=== PATIENT | male | born 1955 | race Caucasian/White ===

== ENCOUNTER 2023-10-24 09:27 | Outpatient (OUT) | payer OTHER, SELFPAY ==
--- NOTE | 2023-10-24 09:39 | XR_ITS ---
The [address] [address] Patient Name: CHELA DUGAN MRN: [id number] date: 1955 Sex: M Assigned Patient Location: [facility] Current Patient Location: Accession/Order Number: [id number] Exam Date: 10/24/2023 09:48 Report Date: 10/25/2023 06:18 At the request of: NON-STAFF PHYSICIAN Procedure: XR shoulder LT min 2V PROCEDURE: XR shoulder LT min 2V HISTORY: Left Shoulder Osteoarthritis M19.012 COMPARISON: None. FINDINGS: BONES:Mild degenerative changes of acromioclavicular joint. Bone anchors within lateral humeral head from prior rotator cuff repair. Unremarkable glenohumeral joint. SOFT TISSUES:No visible soft tissue swelling. EFFUSION:None visible. OTHER: Mechanical fusion of lower cervical spine. XR/XR shoulder LT min 2V IMPRESSION: 1. No acute bone abnormality. 2. Mild degenerative changes of the acromioclavicular joint. Electronically authenticated by: BRAD BROWN Date: 10/25/2023 06:18
--- NOTE | 2023-10-24 09:39 | XR_ITS ---
The [address] [address] Patient Name: CHELA DUGAN MRN: [id number] date: 1955 Sex: M Assigned Patient Location: [facility] Current Patient Location: [facility] Accession/Order Number: [id number] Exam Date: 10/24/2023 09:48 Report Date: 10/25/2023 06:34 At the request of: NON-STAFF PHYSICIAN Procedure: XR cervical spine 2-3V EXAMINATION: XR cervical spine 2-3V HISTORY: Cervical Spondylosis M47.812 COMPARISON: XR C-spine 03/28/2022 FINDINGS: BONES: Anterior mechanical fusion C5-C6-C7 without appreciable fracture or hardware loosening. Normal height and alignment of the vertebral bodies. Multilevel mild to moderate degenerative facet arthropathy. DISC SPACES: With spacers C5-C6, C6-C7. No significant disc space narrowing. PARASPINOUS: Negative. No paraspinous abnormality is seen. OTHER: Negative. XR/XR cervical spine 2-3V IMPRESSION: 1. Stable surgical changes. 2. Stable mild-moderate degenerative facet arthropathy at multiple cervical levels. Electronically authenticated by: BRAD BROWN Date: 10/25/2023 06:34
== END 2023-10-24 09:28 | disposition home or self-care (01) ==
LOC: RAD 09:32
PROVIDERS: PCP Internal Medicine
DX: M19.012 Primary osteoarthritis, left shoulder (principal); M47.812 Spondylosis without myelopathy or radiculopathy, cervical region; Z98.890 Other specified postprocedural states
CPT/HCPCS: 72040; 73030

== ENCOUNTER 2024-03-13 16:02 | Emergency (ER) | payer MEDICARE, OTHER, SELFPAY ==
[2024-03-13 16:06] VITALS: BP 128/70; PULSE 65; TEMP 36.3; O2SAT 95; BMI 33.6
--- OUTSIDE RECORDS SUMMARY | 2024-03-13 16:16 | XMS_ITS | CCD ---
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 without stertor or stridor. Cardiovascular: Regular rate and rhythm. Warm extremities with equal pulses. Psych: Normal mood and affect. Judgement and insight appropriate. Neuro: Alert and oriented. CN II-XII grossly intact. No focal deficits. Musculoskeletal: Gait intact. Moves all extremities well without apparent deformities. A comprehensive facial exam was performed with the following highlights: dorsal nasal deviation to the right Septum: deviated to the right caudally, deflection Inferior turbinates: hypertrophied bl Nasal valve angle: reduced bl Intranasal examination performed with limited view on anterior rhinoscopy. Procedures: Procedure: Rigid diagnostic nasal endoscopy Surgeon: Jace Lindsey MD Anesthesia: None Timeout: Performed Findings: A 0-degree rigid endoscope was passed through the patient's bilateral naris. The first pass was along the floor of the nose to the nasopharynx. The second pass was to the area of the middle meatus. The third pass was to the sphenoethmoidal recess. Septum: Deviation is S shaped with bilateral obstruction approximately 90% without perforations nor synechia. Internal Nasal Valve: Angle is reduced, narrowing the nasal airway bilaterally. Right nasal cavity: Inferior turbinate: 2+ Inferior meatus: Clear, no discharge, no polyps/masses/lesions Middle meatus: Clear, no discharge, no polyps/masses/lesions. po (more content not included)... Normal [facility] Tobacco Screening.on 023 Adult depression screening assessment No [facility] [facility] Work Phone: Fall risk assessment a) No falls within the last year [facility] 395 Work Phone: Tobacco use status [facility] b) No [facility] [facility] Work Phone: Coding Summary.on 06-08-2022 Coding Summary. CD:[id number] Gh0bWw+PGh lYWQ+ZI2YIBMpJ65ekWJglN6JR3vPM J1FJFIBGSGASJ9ELX1iuST0QRszU6R ybiAv YmjsfNSpLK36PEt0QGL1gHovUVtodO 6roINjK2g7BnTmVX55yU40QPfwHVYr CdU0EcAlxfvdpMFh P9mmZpXvzKUwBbd+PHRhYmxlIHdpZH YqGHmrHZQhFlVheMhtYF3fCo2nPWAo LWNvbGxhcHNlOiBj z6upFWCeBAlqCP5whXcjJ6CfdHX4RY Vvg0v0Je80sHF+YBDvTLA1rPjgNYmz q459TlMzi9gkSLT8 lUWhBAknLJE4A44ct3L2OHZsUBOmMI U2bJC3iN1ogOhldirlZ8SgtCUeInW5 YDN3zJHvsB4ezWjg ubmijB5gAcz+Z32ATB4NEYPVBV8GPs v7W4ExWtuyhQX+XO94ZGOqTL53oTGn lAOgy8ppaHs3XjJy SOChSXB8vCylDKbhi7RjELQxE46cgH Upy0W5XHJnrJyhtLWwBiUdgRP2wW1s RLxgqolsx6muildo Rmpya8nemv66sL47L68yDTjtGHTdTW P2KZUtDHXyuSelxy9kxF0xFv3+IDxj p9cvm3rkfSd3NhEc EWHfzxXwfWdoTKO0z6DnQl09R2UxjE rtz6HuZde3ig81uZPnr7U4kVV9JQuj CYZkqC4fYKuuZwE9 VQEgEoIrnQ32iBExVDrjLq2grBfvgL frNZ5yPJYklwnqDEVeeA8jIBNdwGPu gAkwRK9vZAFdyokr x618JxIuUZM8KCDjsABnO8SyjF4iDz GzFVZsJVRqX6JeiLJlMTqzH047VMbs PeM9QHAkaqEfT2To MNUazXicPqL7d2D9Zq9Dv9BwoevxQY S8OJecYHViMySfRzUeXkT5L2KqBog6 CHJcfVmcRM1uA1Wg AAQunjtkqezjxQI1ARBqQONfqW49xD EhRZrkCs9bb8Y6t517MMFfZALrmI64 Hq5hjFrbDKQpeCSZ zC8qwnfij1ycoayiWfKuBHPyYOs2FG f0ZTNmjBhbLdZzIKC2TpS7ZGQ0fSYc uI3cbFktohajoF9r Oyc+X61zmR3rOPQ1VVQ9auwoBZUmka EaYJ24VP22Q0PmJhjzqFMnjTO+PGRp azWbiCadCN5uRhRa g9whm5VrRTywT5FqDKYnCHedLjb3AR IbCYS0pDT2yY2zOCJgVFfye0Z3tYH9 N7JawxAvah3ys1zk ZWLfWMukE70qtODdh2V8JFPfzHH9WI CfrLwaBhSlpQ91Zzs+MPSqzMnpx2Bz Mwhms0vqs6hodQi5 GkRzSLYsvgIrgWacGGZ4z2SrMg74J0 6cCTyuOJPwNFXkFEUcRDSqaHhred0l pI5zGw1+PGNvbCB3 nWZ0gC7uBGLaQqO5OOyjO122RyGyhK TtZejpt2aqw9ewxLr2RgEiLRWhczHy iUowGVO7h4DcJw58 B42dEQrcJZTcCMJrSCTmEUCvoPjwkh 6pgN0mEr6+HL5ma2tuuj56gJ70tTZ+ XFAdSPK5oPzbTKvq PVExoZ4oXNceAdU8PVWeHhNhpK87aM TzSCacXy1hwZzneXfeQI9cIMRuuzwf h385SrKql2fvEGJl rYVbYSawATT3Z35iz8B6VUEuITYlAJ N7zJI3oY2plWrawvcmeBIwwPdtzlVc bOdcMHfzOMnlX306 NNQftPquDuFfzJesnpJfMuUqECi7W9 ZuBqx1UWQufNngRW8woSXxLYpvBd0u rUpqmStdPB3iOWKx ngwge631VtRcp1stHDZsbMZtKLnqLE S1U89mg8J3LUKgPBWsXJA1eGP0xJ7p bGlnbjogbGVmdDsg hkCigZjvOGpqSJinU836CRNccZbdUg RfbhFaGLIjoJT2ZA27NZ71jUQlk9Q3 dQH4T6OzOTRggrev phfbgYA7SYRmRBForO74Xh7wfWnyJf 2fGHGoMXW3VGNbpLTbT6CsoR2uXjFa QMUnJSUxY7XwsHCw CIerO820ZVbuJlV6BBDoddRrB0IdZX SetDiyIbS8d1Q7Gw1XK2A9QR98NP88 nTXdn0T4xJH9G0Le QHDsftoitecbxUZ1WXGdAQStvR39Te 9igEqmRq7gFUNoSAU9YRGlsLPwN1Ar fC3vCbYwFOKiOMAe A6KprBVvFHfhA159VIaxHeW0ZMVgvd TsT5CrDFGlhVvzLcD2y6M5Ez8XHKw4 TX49QL83qMRgc7D3 gPK4D1IiAQPbikdkraxnuWI7BDThOA SwlM97Xp8doNqgFp9pHNKkCRG4CXWq hDSiR9KdwZ4zXsVi QVZdXWUxS7FahSQePDsjZ965TMuyHu C5JFNqjeLpC5IoJIXyjQiyXwU1b8B0 Jr5KILBfWM62RIY9 jKL9ZJ64WY36C0PbJwhmvOPioIZ+PH RhYmxlIHdpZHRoPScxMDAlJyBzdHls YO5uGp0sUTPwBGVq eAwnaUDpDrTjr9kmNIJwBEtrBT6aeC vqT1IxyWY0KXGbw5n0Ct37H72xL9Oe dXA+KYEalFU2xFE5 eW1eQrFyOyX5YExdG539TiEhoKCkYc vsh2chh6yorWr7IaM1VCEyfuLyuSnm GEV6l3OeYb22P12g UMxbKMOeOMDaJFDsYIGhjOlyhx4goB 9wIi8+VSYjzCO8hOV7zQ7fGkIhKhZ8 WWrrV399AjGslFYn Awglu1pqw6zfzNr9WlQqGHDmhdCogJ ouYHO9j1EuAj54Y3WncPneb7FwBpq1 yi21sXXme1P4sZE2 Z1HzRXYaxrbwhHBorXviEA2kQRUurq jsOELngQ7sETCvY5p1KoSqWpX2KRok Z7UfnfQ0BNJieEBu VEutEZE1O11ka8W4UTJkDWLgCNE1cS A5bA1bvWprmxoszNJvdPtwnmYczZlp EUcuXYivO305NCOc xAuuNWFfgU6nIDSseQDumCkvIB4lYS BpbjsnPkdJQkJTLCBEQVZJRDwvdGQ+ YOLmBXN6jOmwLZwk JHDvtT6zQDIzO0o0YfZgAxX5CUgyO6 MhLIZcrymmBc29eP1rCpWbHnA9BYbo Q9JgtaP6MVBriQTo YTmgJDA1T07iv6G3XDJzELEpWMM1mH N8nB7avQujnsbdlKDspOhscxVigHxp QQhjPYvfP271TAWw xErwFnZwKwHbXlI4UOF1O6KnPpe8SR CgoZmpDM2krBVvUOlhLz2syNzetKlg WO2jMAMpkyduKJAz fX8lXDVemYTfxAlpFZ5bQNAijhztt5 33AaDgFET1SCQckSLsJ8UisH3hFqQf PRHfZQPlS0BvgZEe XVbyK986SGghXkX3YYLkobPbU2KxNV TfgQidZlG8y1I8Rn76ZtYUZNYyczro dGQ+YJZjZDY9mMgo SHqhRGFutC3nDYWaT3k5HdJxVdA3YT adG2KsYGXbrptlDc62lF8fCuQlVmS0 AXvjQ6XpslL1TYBe lHHpQGqwKFH8R68ha5G7JZCzAETqKM C0uHB5rZ2caZrbundwlYKglTkngcHe vIbxOUsiBGmwH232 ETMbrKxtHl4eyGO2V1PdEbz2SLWeyJ coHU1voQBwWFwaUx1cyIxkzTsrPW2x XGNjawzyNUDpsR3k YLPnxUIhcMtwAO3yLZUfaqwep301Zb ZbLHI7DFTdnRSaB9KhfV8yFbJiVCOv HMTtL2YxqNJyKCzn N658SKtqNrD1EOJtelKbI1EuDBOimQ fpLgP8c1H4Tl3IhPOfMWInDZ14UO65 PL41J2FgVttaiMGq bGU+PHRhYmxlIHdpZHRoPScxMDAlJy EjtVkoIT9oJw5mNZUcIERdcDertWPk BqWjs7skQOZySOgu YU8unWtiY2EqiLN9HPBbd8f6Na66V3 0fM5GtdGY+IFYyaFT6fPN7mA5lHfRg NcW7WQzdS192ZwBl pTZqAhrof1npc3zuaOo9XrGpNWNgmi UdrLxqKCH5y3SlUr71K40nBPqoXMDb PSIyMCUiIHZhbGln sq7uuC8zRb4+UWFicQQ6aOW7mP7bTf NaEuJ9BLddK581NxTedBXyDpiiL90g F1KycHZ+PHRyPjx0 LFJrcFctKN9igWQaUTilFe3lXLU6Nc EyPmPzAXyrB3ZnBQFopioltobheDL8 NHYsDAIwdR71Vl3t nGdgGl7rQSMpCKX2QXEjlGOmF3HuiZ 3pLnAkQGCuIBCfR9DtqKPsIUocP712 KKoiCsA5QTRmurEu W0SbVIEuiJehXmW8h4V4Ob5DwPsjeU RnQE9xPwKaSHl5C8DiAmd2ZZChmIfj CX5rkVVbNMziEy5p yKfxdOedYJ6cOGBbudids675LlDfk8 scOVHodPEkBSeaCYB1E69ta2N4MRIw QMHmZTL7lPG3vN3o bGlnbjogbGVmdDsgdmVydGljYWwtYW hyK452YTBqiZwkMvQTWqo4J6SaPgn8 PHXuoTevLQ9rrRNl EQccTy8ukArxfNydMW3lZWJyrnuzn6 53OyDlu2biZPPdgGGdFZcyRKH0V79f w7F0UTMfRSLbBPN8 uDW0wU7ooMlpertgyHXerQarxjVayK fqGSvyUYufJ874YEDhoMlrDy1DPsl4 J1NmGlw3FLWhaBxw ID9qcKEgEAgbTz6qtIiycHfxMD3sET Hdgnxxd717QoSgy5xpFQCbdXLgHGhu UQZ5R55sx1R3JCCl BHZhXTB6hQF9fT9pmPnmtwmlbCUfdU vwdhKumWhsUCoeVUzmJ121YEMkxKug PlBheWVyOjwvdGQ+ RU23tc76Q4EdDxehKut4YUMpRNC0kH X2rL8jBBKaPOhvy3S5iPC9U2ZhjjUx eo6mv6eqSNVwBHex Y29s (more content not included)... Normal [facility] CT Maxillofacial w/o Contras ton 06-07-2022 CT Maxillofacial w/o Contrast Exam Date/Time: 06/07/2022 10:19 EST Reason for Exam: J32.4 Report IMPRESSION: MILD MUCOSAL THICKENING. NASAL SEPTAL BOWING TOWARD THE LEFT. EXAM: CT Maxillofacial w/o Contrast CLINICAL HISTORY: Headache J32.4 COMPARISON: NONE. TECHNIQUE: Unenhanced images were obtained through the paranasal sinuses in the axial plane with coronal and sagittal reformats. FINDINGS: Maxillary sinuses: Minimal mucosal thickening along the wolfe the right maxillary sinus and at the infundibulum with probable right infundibular narrowing. Maxillary sinus is clear. Ethmoid sinuses: Minimal mucosal thickening in the anterior ethmoid air cells. Signs of previous ethmoid sinus surgery. Sphenoid sinuses: Minimal mucosal thickening right sphenoid sinus. Frontal sinuses: Mild mucosal thickening in the right frontal sinus floor. Minimal mucosal thickening in the left frontal sinus. Nasal fossa: Moderate smooth septal nasal bowling toward the left. All CT scans at this facility use dose modulation, iterative reconstruction, and/or weight based dosing when appropriate to reduce radiation dose to as low as reasonably achievable. FINAL REPORT Dictated: 06/07/2022 12:20 pm Poncho Mena MD Signed (Electronic Signature): 06/07/2022 12:20 pm Signed by: Poncho Mena MD Transcribed by: ROMAINE Technologist: Maria A MONTALVO [facility] Consent for Treatmenton 05-11 Consent for Treatment [id number]:127 Normal [facility] Physician Orderon 05-31-2022 Physician Order [id number]:127 Normal [facility] Physician Orderon 05-18-2022 Physician Order [id number]#[id number]:127 Normal [facility] MRI Shoulder w/o Lefton 110 MRI Shoulder w/o Left HISTORY: Left lateral shoulder pain. TECHNIQUE: Routine non-contrast MRI of the shoulder , left side COMPARISON: None RESULT: Rotator Cuff Tendons: Mild tendinosis involving supraspinatus with area of mostly low-grade partial-thickness articular sided tearing involving the distal fibers measuring approximately 1.9 x 2.1 cm. Mild tendinosis involving infraspinatus and subscapularis, without tear. Teres minor appears intact. Long Head Biceps Tendon: Intact with appropriate location. Muscle: Muscle bulk and signal intensity are within normal limits. Labrum: Areas of fraying/tearing especially superiorly Bones and Marrow: No evidence of fracture or bone marrow replacing process. Glenohumeral Joint: Cartilage appears preserved. No joint effusion. Acromioclavicular Joint: Mild to moderate degenerative changes with undersurface osteophytes and joint effusion. Other: No other significant abnormality. IMPRESSION: Rotator cuff tendinosis with partial-thickness tearing involving supraspinatus. Report reported and signed by Vincenzo Lake on 04/12/2022 1039 Normal [facility] Specialist XR CSPINE MIN 4 VIEWSon 03-10 XR CSPINE MIN 4 VIEWS EXAMINATION: XR CSPINE MIN 4 VIEWS HISTORY: Cervical spondylosis without myelopathy COMPARISON: XR C-spine 11/09/2017 FINDINGS: BONES: Anterior mechanical fusion C5-C6-7 the a plate and screws; no evidence of hardware fracture or loosening. Multilevel mild degenerative facet arthropathy. Multilevel bone encroachment on the neural foramen. DISC SPACES: Mild narrowing C5-C6, C6-C7, C7-T1. PARASPINOUS: Negative. No paraspinous abnormality is seen. OTHER: Negative. IMPRESSION: 1. Mechanical fusion of lower cervical spine. 2. Multilevel mild/moderate degenerative facet arthropathy and bone encroachment on the neural foramen likely contributing to patient's symptoms. 3. Mild degenerative disc disease. Electronically authenticated by: BRAD BROWN Date: 2022-03-28 21:08 Normal [facility] XR knee RT 4V*on 12-12-2021 XR knee RT 4V* [facility] [place] [address] [place] [address] XRay Report Signed Patient: Chela Dugan MR#: [id number] 3 : 1955 Acct:[id number] Age/Sex: 66 / M ADM Date: 12/12/21 Loc: XDUCLY Room: Type: [facility] Attending Dr: Lavonne JOSEPH Copies to: LAVONNE TRAN Ordering Provider: LAVONNE TRAN Date of Service: 12/12/21 XR/XR knee RT 4V*: RIGHT KNEE PAIN RIGHT KNEE - 4 views COMPARISON: None CLINICAL DATA: Right knee pain for the past week. Patient has been doing a lot of walking though no specific injury. AP, lateral and both oblique views were obtained. There is no acute fracture or dislocation. There is a sclerotic area at the distal femoral metadiaphysis. This is nonspecific though might be a bone island. There is no disproportionate joint space narrowing. There is minor marginal spurring. There is an enthesophyte at the insertion of the quadriceps tendon. A small knee effusion is present. XR/XR knee RT 4V* IMPRESSION: MINOR DEGENERATIVE CHANGES. NO ACUTE BONY FINDINGS. Impression dictated by: Pamela Cristina M.D.12/12/2021 5:57 PM Dictation Location: [place] [address] Transcribed By: [facility] 12/12/211756 Dictated By: Pamela Cristina MD 12/12/211753 Signed By: 12/12/211756 [facility] XR knee RT 4V* [facility] [email or web address] Other XR knee RT 4V* [facility] [employer] Other XR knee RT 4V* [address] [place] [address] [employer] Other XR knee RT 4V* [place] [address] No rt [employer] Other XR knee RT 4V* XRay Report [employer] Other XR knee RT 4V* Signed [employer] Other XR knee RT 4V* Patient: Chela Dugan MR#: [id number] [place] [employer] Other XR knee RT 4V* 3 [employer] Other XR knee RT 4V* : 1955 Acct:[id number] [employer] Other XR knee RT 4V* Age/Sex: 66 / M ADM Date: 12/12/21 [employer] Other XR knee RT 4V* Loc: XDUCLY Room: Ty pe: REG CLI [employer] Other XR knee RT 4V* Attending Dr: Aida Tran [facility] [employer] Other XR knee RT 4V* Copies to: Saskia TRAN [facility] [employer] Other XR knee RT 4V* Ordering Provider: LAVONNE TRAN [facility] [employer] Other XR knee RT 4V* Date of Service: 12/12/21 [employer] Other XR knee RT 4V* [id number]) XR/XR knee RT 4V*: RIGHT KNEE PAIN [employer] Other XR knee RT 4V* RIGHT KNEE - 4 views [employer] Other XR knee RT 4V* COMPARISON: None [employer] Other XR knee RT 4V* CLINICAL DATA: Right knee pain for the past week. Patient has been doing a lot of walking though [employer] Other XR knee RT 4V* no specific injury. N [employer] Other XR knee RT 4V* AP, lateral and both oblique views were obtained. There is no acute fracture or dislocation. [employer] Other XR knee RT 4V* There is a sclerotic area at the distal femoral metadiaphysis. This is nonspecific though might be [employer] Other XR knee RT 4V* a bone island. There is no disproportionate joint space narrowing. There is minor marginal [employer] Other XR knee RT 4V* spurring. There is a n enthesophyte at the insertion of the quadriceps tendon. A small knee [employer] Other XR knee RT 4V* effusion is present. [employer] Other XR knee RT 4V* X R/XR knee RT 4V* [employer] Other XR knee RT 4V* IMPRESSION: [employer] Other XR knee RT 4V* MINOR DEGENERATIVE CHANGES. [employer] Other XR knee RT 4V* NO ACUTE BONY FINDINGS. [employer] Other XR knee RT 4V* Impression dictated by: Pamela Cristina M.D.12/12/2021 5:57 PM [employer] Other XR knee RT 4V* Dictation Location: [place] [address] [employer] Other XR knee RT 4V* Transcribed By: LIZET 12/12/21 [facility] [employer] Other XR knee RT 4V* Dictated By: Pamela Cristina MD 12/12/21 [facility] [employer] Other XR knee RT 4V* Signed By: [employer] Other XR knee RT 4V* 12/12/21 [facility] [employer] Other Hemoglobin A1Con 08-15-2021 EAG 128.37 Normal [facility] Public Health Outreach Worker Comment on above: Performed By: #### A 1C #### [facility] [address] [place] [place], [place] [id number] HbA1c (Bld) [Mass fraction] 6.1 % High 4.0-6.0 [facility] Public Health Outreach Worker Comment on above: Performed By: #### A 1C #### [facility] [address] [place], [place] [id number] Lipid Panelon 08-15-2021 Cholesterol [Mass/Vol] 230 mg/dL High 125-200 [facility] Public Health Outreach Worker Comment on above: Result Comment: Low risk < 200mg/dL Borderline risk 201-239 mg/dl High risk > or equal to 240 Performed By: #### V [facility], LIPD #### [facility] [address] [place], [place] [id number] Cholesterol in HDL [Mass/Vol] 41 mg/dL Normal >40 [facility] Public Health Outreach Worker Comment on above: Result Comment: High Cardiovascular Risk HDL <40 mg/dL Low Cardiovascular Risk HDL > or equal to 60 mg/dl Performed By: #### V ITD, LIPD #### [facility] [address] [place], [place] [id number] Cholesterol in LDL [Mass/Vol] 169 mg/dL Normal [facility] Specialist Comment on above: Result Comment: LDL ATP III CLASSIFICATION LDL less than 100 mg/dl Optimal LDL 100-129 mg/dl Near or above optimal LDL 130-159 Borderline high LDL 160-189 High LDL greater than 189 mg/dl Very High Performed By: #### V ITD, LIPD #### [facility] [address] [place], [place] [id number] Cholesterol in VLDL [Mass/Vol] 20 mg/dL Normal [facility] Public Health Outreach Worker Comment on above: Performed By: #### V ITD, LIPD #### [facility] [address] [place], [place] [id number] Cholesterol.total /Cholesterol in HDL [Mass ratio] 6 {ratio} Normal [facility] Specialist Comment on above: Performed By: #### V ITD, LIPD #### [facility] [address] [place], [place] [id number] Triglyceride [Mass/Vol] 99 mg/dL Normal 30-150 [facility] Public Health Outreach Worker Comment on above: Result Comment: TRIG ATPIII CLASSIFICATIONS TRIG less than 150 mg/dl Normal TRIG 150-199 mg/dl Borderline High TRIG 200-500 mg/dl High TRIG greather than 500 mg/dl Very High Performed By: #### V ITD, LIPD #### [facility] [address] [place], [place] [id number] Vitamin D 25-OHon 08-15-2021 VIT D 25 OH 57 ng/ml Normal >29 [facility] Public Health Outreach Worker Comment on above: Result Comment: Neena min D Status Deficiency <20 ng/mL Insufficiency 20-29 ng/mL Optimal 30-100 ng/mL Possible Toxicity >=150 ng/mL Performed By: #### V ITD, LIPD #### [facility] K[facility] [place] [id number] [place] 05-10-2021 L -- Specimen: [id number] Received: 05/10/21 Status: JAMAAL Tarango Num: [id number] Spec Type: Surgical Subm Dr: Enmanuel Gonzalez MD Tissues: A Colon - Polyp (CECAL POLYP) Procedures: HE Stain/2, Gross/Micro L4 -- Patient Age/Sex Location Account Attending Physician -- Chela Dugan/David [id number] Enmanuel Gonzalez MD -- SPEC NUM: [id number] RECD: 05/10/21 STATUS: JAMAAL TARANGO NUM: [id number] SERENITY: 05/10/21 DR: Enmanuel Gonzalez MD ENTERED: 05/10/21 [facility] DR: SPEC TYPE: Surgical DEPT: S [facility] BY: [id number] ORDERED: HE Stain/2, Gross/Micro L4 ORDERED: HE Stain/2, Gross/Micro L4 Pathological Diagnosis Cecum, biopsy: - Inflammatory-type polyp Clinical Information Screening Gross Description Received in 10% neutral buffered formalin labeled with the patient's name, number and cecal colon polyp is a 0.5 cm cespedes-pink tissue fragment. Entirely submitted in one cassette labeled A1. (SM/JS) Microscopic Description Two glass slides with H E stained material have been examined. The microscopic findings support the above pathologic diagnosis. [id number] -- -- Specimen: [id number] Received: 05/10/21 Status: JAMAAL Tarango Num: [id number] Spec Type: Surgical Subm Dr: Enmanuel Gonzalez MD Tissues: A Colon - Polyp (CECAL POLYP) Procedures: HE Stain/2, Gross/Micro L4 -- Patient: Chela Dugan [id number] (Continued) -- Signed (signature on file) David Bailey MD 05/11/[address] [facility] COVID-19 Antigenon COVID-19 Antigen Healthcare Worker?: N Aldo Reference Aldo Reference Negative SARS-CoV+SARS-CoV-2 (COVID-19) Ag [Presence] in Respiratory specimen by Rapid immunoassay Negative for SARS Antigen by VERA COVID19 Blank Space Aldo Disclaimer Negative results, from patients with symptom Aldo Disclaimer onset beyond five days, should be treated as Aldo Disclaimer presumptive and confirmation with a molecular Aldo Disclaimer assay, if necessary, for patient management, Aldo Disclaimer may be performed. Negative results do not rule Aldo Disclaimer out COVID-19 and should not be used as the sole Aldo Disclaimer basis for treatment or patient management Aldo Disclaimer decisions, including infection control decisions. Aldo Disclaimer Negative results should be considered in the Aldo Disclaimer context of a patient's recent exposures, history Aldo Disclaimer and the presence of clinical signs and symptoms Aldo Disclaimer consistent with COVID-19. COVID19 Blank Space Aldo Disclaimer The Aldo SARS Antigen VERA does not differentiate Aldo Disclaimer between SARS-CoV and SARS-CoV-2. COVID19 Blank Space Aldo Disclaimer This test was developed and its performance Aldo Disclaimer characteristic determined by [place] and Aldo Disclaimer validated at [facility]. This Aldo Disclaimer test has not been FDA cleared or approved. This Aldo Disclaimer test has been authorized by FDA under an Emergency Use Aldo Disclaimer Authorization (EUA). This test has been validated Aldo Disclaimer in accordance with the FDA's Guidance Document (Policy Aldo Disclaimer for Diagnostics Testing in Laboratories Certified to Aldo Disclaimer Perform High Complexity Testing under CLIA prior to Aldo Disclaimer Emergency Use Authorization for Coronavirus Aldo Disclaimer iseas during the Public Health Emergency) Aldo Disclaimer issued on September 10, 2019. This test is only authorized Aldo Disclaimer for the duration of time the declaration that Aldo Disclaimer circumstances exist justifying the authorization of Aldo Disclaimer the emergency use of in vitro diagnostic tests for Aldo Disclaimer detection of SARS-CoV-2 virus and/or diagnosis of Aldo Disclaimer COVID-19 infection under section 564(b)(1) of the Aldo Disclaimer Act, 21 U.S.C. 360bbb-3(b)(1), unless the Aldo Disclaimer authorization is terminated or revoked sooner. PERFORMED BY: [facility] [address] [place] [address] PATHOLOGIST PHLEBOTOMIST SUPERVISOR/INSTRUCTOR DAVID BAILEY M.D. [facility] Comment on above: Performed By: #### S DENISE COVID-19 ALDO #### [facility] [address] Aldo Ag Negativeon 05-08-20 21 [place] Ag Negative Negative Normal Negative [facility] Comment on above: Result Comment: This is a duplicate [place] SARS Antigen (VERA) result to be used for statistical tracking purpose only. PERFORMED BY: [address] [place] [id number] PATHOLOGIST PHLEBOTOMIST SUPERVISOR/INSTRUCTOR DAVID BAILEY M.D. Performed By: #### S OFIANEG, COVID-19 ALDO #### [facility] [address] CBCon 05-03-2018 Erythrocyte distribution width Auto Ratio (RBC) 13.9 % Normal 11.5-15.0 [facility] Comment on above: Performed By: #### C BC ####[place] [phone] Hematocrit Auto Volume Fraction (Bld) 43.5 % Normal 39.0-51.0 [facility] Comment on above: Performed By: #### C BC ####[place] [phone] Hemoglobin mass conc (Bld) 14.3 g/dL Normal 13.0-17.0 [facility] Comment on above: Performed By: #### C BC ####[place] [phone] MCH Auto Entitic mass (RBC) 29.7 pG Normal 26.0-34.0 [facility] Comment on above: Performed By: #### C BC ####[place] [phone] MCHC Auto mass conc (RBC) 32.9 g/dL Normal 30.5-36.0 [facility] Comment on above: Performed By: #### C BC ####[place] [phone] MCV Auto Entitic volume (RBC) 90.4 fL Normal 80.0-100.0 [facility] Comment on above: Performed By: #### C BC ####[phone] Platelet mean volume Auto Entitic volume (Bld) 10.7 fL Normal 9.0-12.7 [facility] Comment on above: Performed By: #### C BC ####[place] [phone] Platelets Auto #/vol (Bld) 259 10*3/uL Normal 150-400 [facility] Comment on above: Performed By: #### C BC ####[phone] RBC Auto #/vol (Bld) 4.81 10*6/uL Normal 4.20-6.00 [facility] Comment on above: Performed By: #### C BC ####[place] [phone] WBC Auto #/vol (Bld) 11.05 10*3/uL High 3.70-11.00 [facility] Comment on above: Performed By: #### C BC ####[place] [phone] CNDSon 05-03-2018 CNDS HNO ID: [id number] thor: Kajal Kaufman) TristenService: General Internal MedicineAuthor Type: Nurse PractitionerType: Discharge SummariesFiled: 05/03/2018 1:49 PMNote Text:DISCHARGE NOTE (Patient Admitted Less than 48 Hours)SERVICE DATE: 05/03/2018SERVICE TIME: 1:46 PMADMISSION DATE: 05/02/2018DISCHARGE DISPOSITION: AMAParonychia Right index fingerRx or Bactrim e [facility] - Patientdeclined to waitSIGNATURE: Kajal Ramon APRN.BHANU PATIENT NAME: Chela DuganDATE: May 03, 2018 : 1:46 PM PAGER: Normal [facility] NURSING PROGon 05-03-2018 Protein mass conc HNO ID: [id number] thor: Lory (Rn) KEVIN Ruvalcabaervice: (none)Author Type: Registered NurseType: Nursing Progress NoteFiled: 05/03/2018 1:15 PMNote Text: Nursing Progress NotePatient Name: Chela DuganMRN: [id number] Location: [place] [address]/[facility]* ___ 0800: Pt awake sitting up in bed. Assessment complete, pt stable. Pt isAANDO x3, pleasant and cooperative. Pt verbalizes 5/10 R index finger painand swelling. Prn pain med declined. Ice bag applied for comfort. Notederythema and edema noted to R index finger. Pt states it seems like itsback to where it was when I first came in . Dr Simpson on consult, to reeval this AM. IVFs infusing as ordered. Needs met. Call light withinreach. Will continue to monitor.1312: Pt asking to leave AMA. This RN encouraged pt to stay and explainedthe potential risks of leaving. Pt continues to ask to sign out andrefused current dose of iv atbx prior to leaving. AMA form signed andwitnessed. IV removed. No bleeding, bruising, swelling, or redness notedto site. Yessi Womack NP and Dr Arreola notified. Pt refused a wheelchairand left the unit in good condition, ambulatory, at 1312.This note was completed by: Lory Ruvalcaba RN [facility] PROGRESSon 05-03-2018 Protein mass conc HNO ID: [id number] thor: Kajal (Aircraft Systems Technician) TristenSerfere: General Internal MedicineAuthor Type: Nurse PractitionerType: Progress NotesFiled: 05/03/2018 1:51 PMNote Text:PROGRESS NOTESERVICE DATE: 05/03/2018SERVICE TIME: 1:18 PMSERVICE: ROUSubjectiveINTERVAL HPI: Seen earlier in AM. Has receive IV Unasyn and IV Vancoovernight. Feels well except redness and swelling to the right indexfinger persists and has pain when attempting to bend finger tip (dipjoint). No pus collection at the nail bed. Has elected to sign AMArelated to not being seen by hand surgeon this AM.Current hospital medications:NaCl 0.9% 3-5 mL 3-5 mL INTRAVENOUS q 12 Hacetaminophen 650 mg tab(s) (TYLENOL) 650 mg ORAL q 6 H PRNoxyCODONE-acetaminophen 5-325 mg 1-2 tablet (PERCOCET) 1-2 tablet ORAL q 4H PRNvancomycin 1.5 g in D5W 250 mL (VANCOCIN) 0.015 g/kg/dose INTRAVENOUS q 12HRampicillin-sulbactam 1.5 g in NaCl 0.9% 100 mL MB+ (UNASYN) 1.5 gINTRAVENOUS q 6 HObjectivePHYSICAL EXAM:Physical Exam Performed:General: Awake, Alert, Oriented, Sitting comfortably in bed; NADLungs: CTAChest: No chest wall tendernessHeart: RRRAbdomen: Soft, nontender, positive bowel sounds Right Index Finger: No pus collection at nail bed cuticle but continueswelling and erythema extending from finger tip care home to pip. LimitedROM DIP joint. Sensation intact.Neuro: Cognition, Motor, Sensory grossly intactBP 121/76 Pulse 59 Temp (Src) 98.9 (Oral) Resp 16 Ht 5' 5 (1.65m) Wt 202 lb (91.6kg) SpO2 94% BMI 33.61 kg/(m2).DATA:Diagnostic tests reviewed for today's visit:Most recent labs and imaging results.Impression/Recommendat ionsPrincipal Problem: Paronychia of finger of right hand Index finger. Assessment as above Afebrile with resolving leukocytosis Plan Dr Arreola re evaluation pending Continue IV antibiotics Patient declined to continue treatment and will be leaving AMA to followwith his own MD Attempted to paper Rx Bactrim but patient declined what walked off unit. Rx for Bactrim e scripted to [facility] [place] 1:50 PM May 03IGNATURE: Kajal Ramon, AMPOULE WASHING MACHINE OPERATOR.PRODUCT PROMOTER SALES PERSON PATIENT NAME: Chela DuganDATE: May 03, 2018 : 1:18 PM PAGER: [facility] ALLIED HEALTHon 05-02-2018 ALLIED HEALTH HNO ID: [id number] thor: Umu (Rt) Jonathon Centeno: RadiologyAuthor Type: TechnicianType: Allied HealthFiled: 05/02/2018 10:28 AMNote Text: Radiology Service Progress NotePATIENT NAME: Chela DuganMRN: [id number] OF SERVICE: May 02, 2018TIME: 10:27 AMPATIENT IDENTITY VERIFICATION COMPLETED USING TWO (2) METHODS: Patientconfirmed name verbally and ID band matches..PATIENT GENDER DATA: MalePATIENT RELEVANT IMPLANT DATA REVIEWED: Not ApplicableRADIOLOGY DEPARTMENT: General X-ray: Exam(s) Completed: Upper ExtremityX-Ray(s): Fingers/Thumb, right :PERIPHERAL IV DATA: Not applicableSIGNED BY: Umu Centeno, RTNovember 2017 10:27 AM Normal [facility] Basic Metabolic Panlon 05-02 Anion gap 3 molar conc 14 mmol/L Normal 9-18 [facility] Comment on above: Performed By: #### C BCDIF, BMP ####[place] [phone] Calcium mass conc 9.2 mg/dL Normal 8.5-10.5 [facility] Comment on above: Performed By: #### C BCDIF, BMP ####[place] [phone] Chloride molar conc 102 mmol/L Normal 98-110 [facility] Comment on above: Performed By: #### C BCDIF, BMP ####[place] [phone] CO2 molar conc 24 mmol/L Normal 23-32 [facility] Comment on above: Performed By: #### C BCDIF, BMP ####[place] [phone] Creatinine mass conc 0.72 mg/dL Normal 0.70-1.40 [facility] Comment on above: Performed By: #### C BCDIF, BMP ####[place] [phone] eGFR- Amer. >60 Normal >60 [facility] Comment on above: Performed By: #### C BCDIF, BMP ####[place] [phone] GFR/1.73 sq M predicted among non-blacks MDRD vol rate/area (S/P/Bld) mL/min/{1.73_m2} Normal >60 [facility] Comment on above: Performed By: #### C BCDIF, BMP ####[place] [phone] Glucose mass conc 91 mg/dL Normal 65-100 [facility] Comment on above: Performed By: #### C BCDIF, BMP ####[place] [phone] Potassium molar conc 4.0 mmol/L Normal 3.5-5.0 [facility] Comment on above: Performed By: #### C BCDIF, BMP ####[place] [phone] Sodium molar conc 140 mmol/L Normal 135-146 [facility] Comment on above: Performed By: #### C BCDIF, BMP ####[place] [phone] Urea nitrogen mass conc 11 mg/dL Normal 10-25 [facility] Comment on above: Performed By: #### C BCDIF, BMP ####[place] [phone] CASE MGT INIT ASSCHRISTIANon 2017 CASE MGT INIT ASSES HNO ID: [id number]: Ghazal Post (Sw)anoService: Care ManagementAuthor Type: Social WorkerType: Care Mgt Initial AssessmentFiled: 05/02/2018 9:51 PMNote Text:CARE MANAGEMENT: ASSESSMENT AND DISCHARGE PLANSERVICE DATE: 05/02/2018SERVICE TIME: 7:33pmPRIMARY CARE PHYSICIAN:Vincenzo Mcgarry II, MDPhone: [id number] STATUS: ObservationNeeds Prior to Discharge: To Be Determined;Discharge PrescriptionsMEDICAL:Patient/R epresentative Stated Goals:To return home to life as it wasHealth Insurance: HEALTHSCOPE BENEFITSHealthscope BenefitsHealth Issues Impacting Discharge Plan: NoneLast Admission Date: noneIs this Within the Past 30 days? N/AIs This a Planned Readmission? Pt has not been admitted in the pastFollowed Up with Appointment Prior to Admission: N/AWhere Did the Patient Come From? HomeIntervention Taken to Avoid Future Readmission? N/AAdvance Directive:Current Advance Directive: NoneCare Certified Nutritionist Attempted to Assist with AD Completion: YesAction: Patient UnwillingHealth Literacy:1. How often do you need to have someone help you when you readinstructions, pamphlets, or other written material from your doctor orpharmacy? Never - 12. How confident are you filling out medical forms by yourself? Extremely- 1If Patient scores > 3 on either question, the following interventions wereput into place:Patient did not score > 3FUNCTIONAL AND COGNITIVE/BEHAVIORALPRIOR TO ADMISSION:Baseline Mental Status: Alert AND Oriented, Person, Place , Time andSituationFunctional Status: IndependentDoes Patient Currently Receive Any Community Services or Home Care? NoneEquipment Prior to Admission: NoneHas the Patient Been in a Fdc Facility in the Past 30 days? NoSOCIAL:Living Arrangement: Home, ranch w/ zero stepsLives With: SpouseFinancial Resources: Employed: full timePrimary Contact: Extended Emergency Contact InformationPrimary Emergency Contact: Malissa Dugan Eaajpa Dbbvmsva: SpouseSupportive: YesOther Important Patient Contacts: NoneCaregiver Assessment:Caregiver is ready, willing and able to meet the patient's needs asrecommended by the inter-professional team? 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 NoMedication Adherence:I am convinced of the importance of my prescription medication: Agreecompletely - 0I worry that my prescription medication will do more harm than good to meDisagree completely - 0I feel financially burdened by my iav-kc-jecnfy expenses for myprescription medication: Disagree completely - 0Patient is categorized as low risk < 2Are you interested in bedside delivery of your medications? No, gets Rxfilled at [facility] in [facility] Concerns:In the Last Month, Have You had Trouble Getting Food? No trouble gettingfoodDuring the Last Month, Have You Worried Whether Your Food Would Run OutBefore You Had Enough Money to Buy More? NoIs the Patient Psychosocially Complex? NoASSESSMENT AND PLAN:Medical Needs: NonePsychosocial Needs: NoneFREEDOM OF CHOICE EXPLAINED:Yes pt at bedsidePOTENTIAL TRANSITION PLANSHomeTo Be DeterminedSW met with pt at bedside of [email or web address] Pt was AANDOx3 and willing to meet withthis SUZY. Pt presents w/ c/o finger injury. 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 Pt drove self to the hospital and cantransport self home upon DC. Pt denies any MH or substance abuse issues atthis time. Pt denies being active w/ any community agencies/services atthis time. No skilled home going needs identified at this time. CMavailable to assist with DC if needed.SIGNATURE: MILAGROS Goyal PATIENT NAME: Chela DuganDATE: May 02, 2018 : 9:42 PM PAGER/CONTACT #: [phone] Normal [facility] CBC and Differentialon 05-02 Abs Baso 0.04 k/uL Normal <0.11 [facility] Comment on above: Performed By: #### C BCSELENE BMP ####[phone] Abs Stephens 1.43 k/uL High <0.87 [facility] Comment on above: Performed By: #### C BCSELENE BMP ####[place] [phone] Abs Neut 8.08 k/uL High 1.45-7.50 [facility] Comment on above: Performed By: #### C BCSELENE BMP ####[place] [phone] Basophils/100 WBC Auto (Bld) 0.3 % Normal [facility] Comment on above: Performed By: #### C BCSELENE, BMP ####[place] [phone] DTYPE Auto Diff Normal [facility] Comment on above: Performed By: #### C BCDIF, BMP ####[place] [address] Eosinophils Auto #/vol (Bld) 0.15 10*3/uL Normal <0.46 [facility] Comment on above: Performed By: #### C BCDIF, BMP ####[place] [phone] Eosinophils/100 WBC Auto (Bld) 1.2 % Normal [facility] Comment on above: Performed By: #### C BCDIF, BMP ####[place] [address] Erythrocyte distribution width Auto Ratio (RBC) 13.9 % Normal 11.5-15.0 [facility] Comment on above: Performed By: #### C BCDIF, BMP ####[place] [phone] Hematocrit Auto Volume Fraction (Bld) 48.5 % Normal 39.0-51.0 [facility] Comment on above: Performed By: #### C BCSHELIAF, BMP ####[place] [phone] Hemoglobin mass conc (Bld) 16.0 g/dL Normal 13.0-17.0 [facility] Comment on above: Performed By: #### C BCDIF, BMP ####[place] [phone] Lymphocytes Auto #/vol (Bld) 2.53 10*3/uL Normal 1.00-4.00 [facility] Comment on above: Performed By: #### C BCDIF, BMP ####[place] [phone] Lymphocytes/100 WBC Auto (Bld) 20.7 % Normal [facility] Comment on above: Performed By: #### C BCDIF, BMP ####[place] [phone] MCH Auto Entitic mass (RBC) 30.0 pG Normal 26.0-34.0 [facility] Comment on above: Performed By: #### C BCDIF, BMP ####[place] [phone] MCHC Auto mass conc (RBC) 33.0 g/dL Normal 30.5-36.0 [facility] Comment on above: Performed By: #### C BCDIF, BMP ####[place] [phone] MCV Auto Entitic volume (RBC) 90.8 fL Normal 80.0-100.0 [facility] Comment on above: Performed By: #### C BCDIF, BMP ####[place] [phone] Monocytes/100 WBC Auto (Bld) 11.7 % Normal [facility] Comment on above: Performed By: #### C BCDIF, BMP ####[place] [phone] Neutrophils/100 WBC Auto (Bld) 66.1 % Normal [facility] Comment on above: Performed By: #### C BCDIF, BMP ####[place] [phone] Platelet mean volume Auto Entitic volume (Bld) 10.8 fL Normal 9.0-12.7 [facility] Comment on above: Performed By: #### C BCDIF, BMP ####[place] [phone] Platelets Auto #/vol (Bld) 277 10*3/uL Normal 150-400 [facility] Comment on above: Performed By: #### C BCDIF, BMP ####[place] [phone] RBC Auto #/vol (Bld) 5.34 10*6/uL Normal 4.20-6.00 [facility] Comment on above: Performed By: #### C BCDIF, BMP ####[facility] [place], [place] [phone] WBC Auto #/vol (Bld) 12.23 10*3/uL High 3.70-11.00 [facility] Comment on above: Performed By: #### C BCSHELIAF, BMP ####[facility] [place], [place] [phone] CONSULTon 05-02-2018 CONSULT HNO ID: [id number] thor: Nathan ArreolaService: Orthopaedic SurgeryAuthor Type: PhysicianType: ConsultsFiled: 05/02/2018 7:18 PMNote Text:CONSULTATION - ORTHOPEDICS - HANDSERVICE DATE: 05/02/2018SERVICE TIME: 7:08 [facility] CARE PHYSICIAN: Vincenzo Mcgarry II, TAYLORubjectiveKENMARE COMMUNITY HOSPITALSRAVANI COMPLAINT: Pain in the Right Index fingerHPI: This is a 63 year old male who presents with infection Right indexfingerThe patient is concerned that he might have gotten a piece of metalembedded in his right index finger 6 months ago 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 The patient has had recurrent problems with drainage and painalong the cuticle of his right index finger. Over the last few days, hehas developed redness and pain of his right index finger. No trauma. Hewas placed on Keflex at an urgent care a couple of days ago with no help.No fevers or chills. No numbness, weakness, or paresthesias. He does nottake any oral anticoagulant medications. He has no other associatedsymptoms with this complaint. - History obtained from patientFUNCTIONAL STATUS: IndependentNo past medical history on file.PAST SURGICAL HISTORYProcedure Laterality Date- COLONSCOPY SCREENING HIGH RISK- PAST SURGICAL HISTORY OF right ring finger surgery- REMOVAL GALLBLADDER- SINUS SURGERY HXFAMILY HISTORYProblem Relation Age of Onset- Cancer Mother ovarian- Heart Attack Mother age 66- Stroke FatherSocial HistorySubstance Use Topics- Smoking status: Never Smoker- Smokeless tobacco: Never Used- Alcohol use NoPrescriptions Prior to Admission:traMADol (ULTRAM) 50 mg tablet Take 50 mg by mouth every 4 hours as neededfor Pain. Disp: Rfl: 0 05/01/2018 at Unknown timemupirocin (BACTROBAN) 2 % cream APPLY TO THE AFFECTED AREA(S) THREE TIMESDAILY FOR 7 DAYS (topically to finger) Disp: Rfl: 0 05/01/2018 at UnknowntimecephALEXin (KEFLEX) 500 mg capsule TAKE 1 CAPSULE BY MOUTH EVERY 8 HOURSfor 7 days Disp: Rfl: 0 05/02/2018 at 0200acetaminophen (TYLENOL EXTRA STRENGTH) 500 mg tablet Take 1,000 mg bymouth every 8 hours as needed for Pain. Disp: Rfl: 05/01/2018 at UnknowntimeALLERGIESAllergen Reactions- Benadryl [Diphenhyd* Swelling Tongue swelling- Nsaids (Non-Steroid* Swelling Tongue swellingCOMPLETE REVIEW OF SYSTEMS:GENERAL: No weight loss, malaise or feversObjectivePHYSICAL EXAM:Physical Exam Performed:GENERAL: Alert, Mild Distress, CooperativeRight - Index fingerSwelling over the middle and distal phalanx - Base of nailTender over the phalangesMotion in the finger is present at the IP joints but limitedErythema over the phalangesNo draniange noted over the fingerNail appears normalNo lymphangitis notedSmall scar over the site of attempted drainage - 2-3 mmBP 135/74 Pulse 55 Temp (Src) 98.8 (Temporal Artery) Resp 16 Ht 5'5 (1.65m) Wt 202 lb (91.6kg) SpO2 98% BMI 33.61 kg/(m2).DATA:Diagnostic tests reviewed for today's visit:Most recent imagingThere is no evidence of acute fracture, subluxation ordislocation seen. The soft tissues demonstrates periarticular soft tissueswelling over the second DIP and PIP joint where there is also spurringmost pronounced at the dorsal and volar aspect of the DIP joint. ?Noforeign body is seen.Cystic changes noted in the middle phalanx - Head - No bone destructionAssessment/PlanPrin cipal Problem: Paronychia of finger of right hand POA: Yes Assessment AND Plan:Recommend - Continuation of IV antibioticsWill follow patientActive Problems: Paronychia of finger, right POA: Yes Assessment AND Plan:Resolved Problems: * No resolved hospital problems. *Medication and Non-Pharmacologic VTE Prophylaxis/Vbxlcxxjjukugq55/2 08/25 1530 vte non-pharmacologic prophylaxis - none indicated ([place])05/02/18 1530 activity - mobilize patient ([place])VTE Prophylaxis: VTE prophylaxis appropriateSIGNATURE: Nathan Arreola MD PATIENT NAME: Chela DuganDATE: May 02, 2018 : 7:08 PM PAGER/CONTACT #: [phone] [facility] ED NOTEon 05-02-2018 ED NOTE HNO ID: [id number] thor: Wilbur (Rn) Salena, KEVINervice: NursingAuthor Type: Registered NurseType: ED NotesFiled: 05/02/2018 10:53 AMNote Text: Right index finger edematous and reddened with streaking to base offinger. Pt complains of pain. Seen by and plan is for xray and IANDD. [facility] ED PROV NOTEon 05-02-2018 Protein mass conc HNO ID: [id number] thor: TAYLOR Petersonervice: (none)Author Type: PhysicianType: ED Provider NotesFiled: 05/02/2018 12:41 PMNote Text:ED Provider NotePatient Name: Chela DuganMRN: [id number] DATE: 05/02/18HistoryPatient presents with:Finger Injury: pt has finger infection. Noticed earlier this week thatthere was swelling around the nailbed of the index finger of the righthand. Pt has redness and swelling noted to the finger. Painful. 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 The patient has had recurrent problems with drainage andpain along the cuticle of his right index finger. Over the last few days,he has developed redness and pain of his right index finger. No trauma.He was placed on Keflex at an urgent care a couple of days ago with nohelp. No fevers or chills. No numbness, weakness, or paresthesias. Hedoes not take any oral anticoagulant medications. He has no otherassociated symptoms with this complaint.Quality: Sharp painSeverity: ModerateTiming: For: As above Constant/Present NowModifying Factors: Worsened by: Touch the affected finger Relieved by: Nothing Unrelieved despite: KeflexContext: Normal setting and activityAssociated Symptoms: None, except as noted above.Current Facility-Administered Medications:bupivacaine (PF) 0.25 % (2.5 mg/mL) 2.5 mg injection (SENSORCAINE MPF) 1mL SUBCUTANEOUS ONCENaCl 0.9% 2-10 mL 2-10 mL INTRAVENOUS ONCEampicillin-sulbactam 3 g in NaCl 0.9% 100 mL MB+ (UNASYN) 3 g INTRAVENOUSONCEvancomycin 1.5 g in D5W 250 mL (VANCOCIN) 0.015 g/kg/dose INTRAVENOUS ONCECurrent Outpatient Prescriptions:traMADol (ULTRAM) 50 mg tablet Take 50 mg by mouth.mupirocin (BACTROBAN) 2 % cream APPLY TO THE AFFECTED AREA(S) THREE TIMESDAILY FOR 7 DAYS (topically)cephALEXin (KEFLEX) 500 mg capsule TAKE 1 CAPSULE BY MOUTH EVERY 8 HOURSibuprofen (MOTRIN) 600 mg tablet Take 600 mg by mouth.docusate sodium (COLACE) 100 mg capsule Take 1 capsule by mouth twicedaily.benzocaine-menthol (CEPACOL) 15-3.6 mg lozg Use 1 Lozenge as instructedevery 2 hours as needed.HYDROcodone-Acetaminoph en 7.5-300 mg tab Take 1 tablet by mouth every 6hours as needed.gabapentin (NEURONTIN) 300 mg capsule Take 300 mg by mouth. Take 2 everymorning and 2 every afternoonPast medical history: Cervical spine problem PAST SURGICAL HISTORYProcedure Laterality Date- COLONSCOPY SCREENING HIGH RISK- PAST SURGICAL HISTORY OF right ring finger surgery- REMOVAL GALLBLADDER- SINUS SURGERY HXFAMILY HISTORYProblem Relation Age of Onset- Cancer Mother ovarian- Heart Attack Mother age 66- Stroke FatherSocial HistorySocial History Main Topics- Smoking status: Never Smoker- Smokeless tobacco: Never Used- Alcohol use No- Drug use: No- Sexual activity: Not on fileALLERGIESAllergen Reactions- Benadryl [Diphenhyd* Swelling Tongue swelling- Nsaids (Non-Steroid* Swelling Tongue swellingReview of SystemsConstitutional: Negative for chills and fever.HENT: Negative for congestion, ear pain, rhinorrhea, sneezing, sore throatand trouble swallowing.Eyes: Negative for pain, discharge, redness and visual disturbance.Respiratory: Negative for cough and shortness of breath.Cardiovascular: Negative for chest pain and palpitations.Gastrointestinal: Negative for abdominal pain, diarrhea, nausea andvomiting.Genitourinary: Negative for difficulty urinating, dysuria, flank pain andhematuria.Musculoskeletal: Negative for back pain and myalgias.Skin: Positive for color change.Neurological: Negative for seizures, syncope, weakness and headaches.Hematological: Negative for adenopathy.Psychiatric/Behavio ral: Negative for hallucinations, self-injury andsuicidal ideas.Physical ExamBP 132/80 Pulse 68 Temp (Src) 98.4 (Oral) Resp 14 Ht 5' 5 (1.65m) Wt 202 lb (91.6kg) SpO2 96% BMI 33.61 kg/(m2).Physical ExamMusculoskeletal: Hands:Vital signs and Nursing notes were reviewedGen Appearance: Patient is alert and oriented and in no acute distress.Neck: Supple, Trach/Thyroid normalEENT: PERRLA, EOMI, Conjunctivae normal.Skin: Warm and dry with no rash.Cardiovascular: Heart RRR, no gallops or rubs, no aorta enlargement orbruit noted. 2+ radial and ulnar pulses equal and symmetric bilaterally.Normal cap refill in all fingers.Respiratory: Lungs clear, no wheezing, no rales, normal breath sounds.Gastrointestinal: Abdomen non tender, bowel sounds normal, norebound/guarding/distention or mass.Genitourinary: Bladder not tender or distended; no CVA tenderness.Musculoskeletal: No Shoulder/Humerus tenderness No Elbow tenderness No Forearm tenderness Right index Finger Tenderness No Metacarpal Tenderness No Carpal Tenderness No Scaphoid/Snuffbox Tenderness No Lunate/Middorsal Wrist Tenderness No Subungual hematoma No Dislocation No Deformity Boutonniere Mallet Castine Neck No Finger/Joint Instability FDS/FDP/ED intact in all fingers against active stress All wrist flexors/extensors intact against active stress Able to flex/extend/oppose/abduct/addu ct thumb against active stresswithout difficulty Kanavel's Signs are Negative Right index finger paronychia No felonThe patient is unable to flex his finger due to pain. He prefers to havehis finger in complete extensionNeurological: Pt is alert and oriented x 3, memory intact, no focal motoror sensory deficits noted, normal gait. Median, ulnar, and radial nervesintact and equal bilaterally.Diagnostic TestingED Labs Ordered and ReviewedCBC + AUTO DIFF (AK,AV,EU,FV,HL,GHAZAL,MM,SP)BASIC METABOLIC PANEL (AK,AV,EU,FV,HL,GHAZAL,MM,SP)Proce duresProcedure note: Incision and drainage of paronychia.The patient was prepped and draped in sterile fashion.A total of 4 cc's of 0.25% bupivacaine without epinephrine was used for adigital block.Using an 11 blade, a 3 mm incision was made along the nail fold along theulnar side.A small amount of yellow discharge was obtained.The patient tolerated the procedure well, no complications.ED Course / Clinical ImpressionClinical Impressions as of May 02 1241Paronychia of finger of right handCellulitis of finger of right handFailure of outpatient treatmentMDM / Disposition / PlanMDMReported possible metal foreign body. Evaluated with x-ray. The patientwill need drainage of this paronychia.12:23 PM - I discussed the case with Dr. Lawson, system administration manager for hand surgery,he requests IV antibiotics and admission to CDU.The patient was ADMITTED TO: CDU.Condition at time of disposition: stablePLEASE NOTE: Portions of the medical record may have been produced usingelectronic shoulder joiner and may contain errors with respect totranslation of words which may not have been identified prior tofinalization of the chart.SIGNATURE: Alex Browne [facility] Amos Browne MD05/02/18 1241 Normal [facility] HISTORY PHYSICALon 8 HISTORY PHYSICAL HNO ID: [id number] thor: Vincenzo Dexterervice: General Internal MedicineAuthor Type: PhysicianType: HANDPFiled: 05/02/2018 3:14 PMNote Text:ROUHISTORY AND PHYSICAL EXAMPATIENT NAME: Chela DuganMRN: [id number] DATE: 05/02/2018SERVICE TIME: 3:07 PMPrimary Care Physician: Vincenzo Mcgarry II, MDASSESSMENT AND PLANPatient Active Hospital Problem List: Paronychia of finger of right hand (05/02/2018): continue withVancomycin and Unasyn for now. IV fluids. NPO until evaluated by Brian (hand surgery). Analgesics. 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 He routinely cuts his hands. Theswelling and pain of his finger began several days ago. He was evaluatedin an urgent care center and placed on Keflex. His finger became worse sohe came to the ED at [facility] for further evaluation and therapy. He deniesfever and chills. He is allergic to NSAID's. An IANDD was done in the ED.Per the patient very little pus was expressed. Currently his pain is wellcontrolled.PAST MEDICAL HISTORY: No past medical history on file.PAST SURGICAL HISTORY:PAST SURGICAL HISTORYProcedure Laterality Date- COLONSCOPY SCREENING HIGH RISK- PAST SURGICAL HISTORY OF right ring finger surgery- REMOVAL GALLBLADDER- SINUS SURGERY HXFAMILY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 changes.This HANDP can be found in the Electronic Medical Record dated 12/09/17.SIGNATURE: Sonia Barros MD PATIENT NAME: Chela DuganDATE: December 19, 2017 : 11:27 AM PAGER: [facility] NURSING PROGon 12-19-2017 Protein mass conc HNO ID: [id number] thor: Angeles (Rn) Jorje, RNService: Vascular SurgeryAuthor Type: Registered NurseType: Nursing Progress NoteFiled: 12/19/2017 12:30 PMNote Text: Nursing Progress NotePatient Name: Chela DuganMRN: [id number] Location: [facility] OR POOL/[facility] OR POOL Daily Note: Pt's family was updated at 1230 on the status of surgery, viathe family paging system.This note was completed by: Angeles Recinos RN [facility] OPERATIVE NOon 12-19-2017 OPERATIVE NO HNO ID: [id number] thor: Sonia BarrosService: NeurosurgeryAuthor Type: PhysicianType: Operative ReportFiled: 12/20/2017 8:47 AMNote Text:[facility] - Operative ReportCHELA DUGAN ADOB: 1955 AGE: 62 SEX: MMRN: [id number] CSN: [id number] SVC: GENS LOCATION: [id number] PHYSICIAN: Sonia Barros M.D.DATE OF PROCEDURE: 12/19/2017PREOPERATIVE DIAGNOSIS: Cervical radiculopathy.POSTOPERATIVE DIAGNOSIS: Same.NAME OF OPERATION: Anterior cervical diskectomy and fusion at C5-6 andC6-7 with plate.SURGEON: Sonia Barros M.D.PATIENT PARTNER: Yas Roman (sp).ANESTHESIA: General.ESTIMATED BLOOD LOSS: 50 cc.BACKGROUND NOTE: This patient had severe pain going down the arms,especially the right. MRI revealed significant foraminal stenosis. Hedid not improve with conservative treatment, wished to have surgery. All risks and benefits were carefully explained.PROCEDURE: The patient was taken to the OR and satisfactory generalendotracheal anesthesia was induced. The patient was given 2 g of IVpreoperative Ancef and placed in a supine position on the operatingroom table with the neck slightly extended. The neck was prepped anddraped in the usual sterile fashion. A time- out was performed. Theincision was made on the right side of the neck at the level of thecricoid cartilage. This was made transversely. We opened theplatysma sharply in a longitudinal direction and carefully dissectedthe soft tissue plane in between the sternocleidomastoid and theesophagus. The carotid was identified and carefully protected. Theesophagus was retracted medially. The spine was identified. Theprevertebral fascia was incised sharply. We removed the anteriorosteophytes and took an intraoperative x-ray with an instrumentrigidly affixed to the spine. We agreed on the level marked with apurple marking pen and a destructive lesion. Dr. Waddell also identified the level and called in and discussedthis with us from a remote location. We put in the self-retainingretractor and brought [place] distraction post at C5 and C6. Wegently distracted. We brought in the intraoperative microscope. TheC5-6 disk was removed. The endplates were scraped, posteriorosteophytes removed with a high-speed drill. We opened the PLLsharply and performed wide foraminotomies and undercut the adjacent ofvertebral body edges. There was no residual compression. We were ableto pass a blunt instrument out the foramen on both sides. Weirrigated and placed an 8 mm structural lordotic allograft. This wasgently countersunk. We removed the C5 post and replaced it at C7 andgently distracted. We removed the C6-7 disk, we scraped the endplates,removed the posterior osteophytes with a high-speed drill with PLL andperformed wide foraminotomies. We undercut the adjacent of vertebralbody edges. We were able to pass a blunt instrument out the foramenon both sides. There was no residual compression. We copiouslyirrigated and placed a 7 mm structural lordotic allograft. This wasgently countersunk. We removed the posts and placed a 30 mm StrykerAviator plate spanning C5 to C7. Screws were brought. We used 14 mmvariable angle screws at all levels. Screws were brought down to bonelevel and carefully locked to the plate. Final x-ray showed goodplacement of graft and hardware and good spinal alignment. Weinspected the esophagus under the microscope. There was no sign ofany injury. There was no active bleeding. We began to close. Weremoved the retractors and closed the wound in 3 layers using running4-0 Biosyn subcuticular and skin glue. At the end of the case, thepatient was transferred to the hospital bed, extubated, and taken toPACU in stable condition. There were no complications. All countswere correct at the end of the case. I was present and scrubbed forall critical aspects of the case.Sonia Barros M.D.NeurosurgeryJA:[id number]: 12/19/2017 15:07:36T: 12/20/2017 01:53:09Job #: [id number] [facility] PT EDon 12-19-2017 PT ED HNO ID: [id number] thor: Donita (Rn) KEVIN Monteervice: NursingAuthor Type: Registered NurseType: Patient EducationFiled: 12/19/2017 9:31 AMNote Text:PATIENT EDUCATION TOPIC: PROCEDURE / SURGERY: Pre-op Teaching:ProtocolsPATIENT NAME: Chela DuganMRN: [id number] LOCATION: OR POOL/FV OR POOLREADINESS TO LEARNCOGNITIVE ABILITY: Alert and orientedMOTIVATION TO LEARN: InterestedFAMILY SUPPORT: Unable to assess - Family not presentINSTRUCTION PROVIDED TO: PatientPATIENT LEARNS BEST BY: Individual InstructionFACTORS AFFECTING LEARNING: NonePHYSICAL LIMITATIONS AFFECTING LEARNING: NoneLEARNING RESPONSEDIAGNOSIS: ADULT: surgeryPATIENT/FAMILY RESPONSE: Verbalizes understanding of: [id number]-Oqyo ect action to take to follow pre-operative instructionsMETHOD OF INSTRUCTION: Individual instructionFOLLOW-UP PLAN: Complete - No need for follow-upINSTRUCTIONAL AIDS USED: NASUPPLEMENTAL MATERIAL PROVIDED TO PATIENT: NoneREFERRAL (RECOMMENDATION): NoneElectronically Signed By: Donita Monte RN [facility] XR CERVICAL 2V AP/LATon Protein mass conc * * *Final Report* * *DATE OF EXAM: Dec 19 2017 2:44PM FVO 5308 - XR CERVICAL 2V AP/LAT / REASON: NECK PAIN/ INTRA OP C5-7 FUSION * * * * Physician Interpretation * * * * XR CERVICAL 2V AP/LATPROVIDED HISTORY: NECK PAIN/ INTRA OP C5-7 FUSIONCOMPARISON: A radiograph of the cervical spine from 12/19/2017 at 12:39 PMTECHNIQUE: 2 spot views of the cervical spine.RESULT: Anterior fusion device with transfixing screws is noted in the cervical spine extending from the C5 level to the C7 level. Cervical spine alignment appears appropriate on the provided images.IMPRESSION: Lower cervical fusion device has been placed in the interval. Fluoroscopic assistance provided for surgical procedureTranscriptionist: DIMITRI Transcribe Date/Time: Dec 19 2017 3:22PDictated by : DEEPA HATHAWAY MDThis examination was interpreted and the report reviewed and electronically signed by: DEEPA HATHAWAY MD on Dec 19 2017 3:22PM [id number] [facility] XR CERVICAL SPECIFY 1Von Protein mass conc * * *Final Report* * *DATE OF EXAM: Dec 19 2017 12:47PM FVO 5315 - XR CERVICAL SPECIFY 1V / REASON: NECK PAIN/ INTRA OP C5-7 FUSION #1 * * * * Physician Interpretation * * * * HISTORY: NECK PAIN/ INTRA OP C5-7 FUSION #1CERVICAL SPINETECHNIQUE: Single crosstable lateral view of the cervical spine was obtained in the operating room. Please refer to the intra-operative note.RESULT:Metallic pointer at C5-6 anteriorly.IMPRESSION:Metallic pointer at the C5-6 anteriorly.Food Critic: DIMITRI Transcribe Date/Time: Dec 19 2017 1:54PDictated by : SAMANTHA BRISCOE MDThis examination was interpreted and the report reviewed and electronically signed by: SAMANTHA BRISCOE MD on Dec 19 2017 1:55PM [id number] [facility] NURSING PROGon 12-17-2017 Protein mass conc HNO ID: [id number] thor: Tito (Rn) KEVIN Suarezervice: (none)Author Type: Registered NurseType: Nursing Progress NoteFiled: 12/17/2017 12:04 PMNote Text:PACC Nurse Progress NoteHistory AND Physical:PACC Visit Date: 12/09Original HANDP Date: N/AED visit Date: N/AOutside HANDP Scanned Date: N/ALabs Within Last 6 Months:CBC: Date MP/CMP: Date T: Date TT: Date 12/09UA: Date 12/09Urine C+S: Date 12/09TYPE AND SCREEN: Date asal swab positive-all other results within normal limits.Imaging Within Last 12 Months:N/ACardiac Testing:EKG in last 12 Months: Yes: Date: 12/09, Comment: confirmed-S BradycardiaLast Menstrual Period:LMP Date: N/APostmenopausal >1yr: N/A,S/P Hysterectomy: N/ABMI Percentile (PEDS):N/ARisk Assessment:N/AAnesthesia Review:N/ANarrative:Nasal swab positive for staph. Patient contacted by [facility]-order formupirocin placed and patient given instructions for use.Pre-op Considerations:N/AChart Check:Barrett Suarez RNJuly 2017 12:01 PM [facility] Type and SCR (30D)on 018 ABO/RH(D) Positive [facility] Comment on above: Performed By: #### T SCR30 ####[facility] [place], [place] [phone] HOSPon 12-06-2017 HOSP Patient:Chela Dugan AMRN: Height:5' 5 (1.651 m)Weight:190 lb (86.183 kg)Outpatient Medications as of 12/19/17:mupirocin (BACTROBAN) 2 % ointmentHYDROcodone-Acetaminop hen 7.5-300 mg tabgabapentin (NEURONTIN) 300 mg capsuleAdmission/Clinic Administered Medications as of 12/19/17:lactated ringers infusionceFAZolin iv piggyback 2 g in D5W (iso-osmotic) 100 mL (ANCEF)Problem List:Cervical disc disorder with radiculopathy [M50.10]Allergies:Benadryl [Diphenhydramine Hcl]Nsaids (Non-Steroidal Anti-Inflammatory Drug)Date Verified: 12/19/17Lab ValuesLab Value Units Date High LowPOTA* 4.1 mmol/L 12/09/2017 5.1 3.7HEMA* 44.7 % 12/09/2017 51.0 39.0Progress Notes (NEUS FRVW):Geraldine Blanco Psr 12/12/2017 11:06 AM SignedReceived fax from [email or web address], requesting medical records and request was faxed.[email or web address] also faxed Medical Certification form for disability leave.Placed fax/form in doctor nurse's folder.Diana Weller RN, RN 12/12/2017 2:55 PM SignedPlaced in RN paperwork to be completed file. Diana Weller RN, RN 12/12/2017 2:55 PM SignedFaxed signed forms along with office visit note, med list and surgical requestto [phone]. Receipt confirmation at 14:42 . Sent to be scanned into [employer]TREVOR Mccannrogress Notes (PRE JAMEYS INGRIS):Camille Barrientos APRN.PRODUCT PROMOTER SALES PERSON 12/10/2017 11:34 AM AddendumHISTORY AND PHYSICAL EXAMINATIONSERVICE DATE: 12/09/2017SERVICE TIME: 9:36 AMPRIMARY CARE PHYSICIAN: Vincenzo Mcgarry II, MDREASON FOR VISIT:Chela Dugan is a 62 year old male who is scheduled for PACC at the request ofDr. Sonia Barros for consultation. My final recommendation will becommunicated back to the requesting physician by way of shared medical record orletter.The patient has the following:ACTIVE PROBLEM LISTCervical Disc Disorder With RadiculopathySubjectiveCHIEF COMPLAINT: Neck painHPI: 62 year old male with pain in the neck. It then radiates into the rightshoulder and into the posterior upper arm to the elbow. He has muscle spasms inthe right arm at times and then the pain will go into the forearm. It hasradiated into the left arm a few times. Numbness/tingling in the right 2nd and3rd fingers. If he puts his arm over his head that will help. He has had thisfor about 3 weeks and it was getting worse. Denies pain today. Has attemptedmedication and PT without relief. Scheduled for C5-6, 6-7 ACDF with PlateNo past medical history on file.PAST SURGICAL HISTORYProcedure Laterality Date- COLONSCOPY SCREENING HIGH RISK- PAST SURGICAL HISTORY OF right ring finger surgery- REMOVAL GALLBLADDER- SINUS SURGERY HXFAMILY HISTORYProblem Relation Age of Onset- Cancer Mother ovarian- Heart Attack Mother age 66- Stroke FatherSOCIAL HISTORY:Social History Marital status: Spouse name: Years of education: Number of children:Social History Main Topics Smoking status: Never Smoker Smokeless tobacco: Never Used Alcohol use: No Drug use: NoMEDICATIONS:Prior to Admission medications as of 12/09/17 0900Medication Sig Last Dose TakingHYDROcodone-Acetaminophe n 7.5-300 mg tab Take 1 tablet by mouth every 6 hours asneeded. Yesgabapentin (NEURONTIN) 300 mg capsule Take 300 mg by mouth. Take 2 every morningand 2 every afternoon YesNo medication comments found.CURRENT ALLERGIES:ALLERGIESAllergen Reactions- Benadryl [Diphenhyd* Swelling Tongue swelling- Nsaids (Non-Steroid* Swelling Tongue swellingREVIEW OF SYSTEMS:PAIN ASSESSMENT:General: No weight loss, malaise or fevers.Neuro: No history of TIA's, stroke, STATISTICAL MACHINE MECHANIC tumor, impaired sensorium, hemiplegia,paraplegia or quadraplegia. No neurological symptoms or problems.Respiratory: No history of current cough or dyspnea, or pneumonia in the past 6weeks. No history of respiratory/pulmonary symptoms or problems., sinus problemsCardiovascular: No history of HTN requiring medication, no history of angina,CHF, GA, cardiac surgery or stents. Denies rest pain, gangrene orrevascularization/amputation for PVD. No history of cardiovascular symptoms orproblems.GI: No history of GI symptoms or problems. No history of esophageal varices,recent ascites, or ETOH greater than 2 drinks per day.: No history of dysuria, frequency or incontinence,, stones or chronic kidneydiseaseEndocrine: No history of diabetes. Has not taken steroids within the past 30days. No history of endocrinological symptoms or problems.Hematology: No history of bleeding or clotting disorder. Pt is not takinganti-coagulation or platelet medications. No history of hematological symptomsor problems.Oncology: No history of CA metastasis, chemo within 30 days, or radiotherapywithin 90 days. Has not lost 10% of body wt in 6 months. No history ofoncological symptoms or problems.Psych: No history of psychiatric symptoms or problems.Musculoskeletal: See HPISkin: Negative for lesions, rash and itching.ObjectivePHYSICAL EXAM:VITALS:BP 123/65 Pulse 63 Temp (Src) 97 (Temporal Artery) Resp 18 Ht 5' 5 (1.65m) Wt 190 lb (86.2kg) SpO2 96% BMI 31.62 kg/(m2).General: Alert and oriented, No acute distress, ObeseSkin: Normal color, no rash, no lesions.HEENT: EOM, pupils equal, round and reactive., No carotid bruitsCardiovascular: Normal S1 AND S2, no rubs, murmurs or gallops. No JVD. Pulseregular.Lungs: Normal breath sounds, no wheezes or crackles.Abdomen: Soft, non-tender, no rigidity.Extremities: No deformity, no edema or tenderness, no joint swelling orclubbing.Neurological: Normal cognition and motor skills.Pulses: Carotid and radial pulses normal +2.Diagnostic tests reviewed for today's visit: Lab Value Units Date High Low HB 14.3 g/dL 12/09/2017 17.0 13.0 HCT 44.7 % 12/09/2017 51.0 39.0 WBC 7.05 k/uL 12/09/2017 11.00 3.70 PLT 308 k/uL 12/09/2017 400 150 NA 141 mmol/L 12/09/2017 144 136 K 4.1 mmol/L 12/09/2017 5.1 3.7 GLUC 89 mg/dL 12/09/2017 99 74 BUN 12 mg/dL 12/09/2017 24 9 CREAT 0.82 mg/dL 12/09/2017 1.22 0.73 PTSEC 10.2 sec 12/09/2017 13.0 9.7 INR 1.0 no uni* 12/09/2017 1.3 0.9 APTT 24.6 sec 12/09/2017 32.4 23.0Urine cultureCulture (Final) CCMNo growth (<1,000 CFU/ml)Nasal swabS aureus Specimen Source CCMNasalMRSA PCR CCMNegative for MRSA by PCR.Staph aureus PCR (Abnormal) CCMPositive for Staphylococcus aureus by PCR.Mupirocin ordered Most recent EKG:Procedure Date : Dec 09 2017 08:23:34Edit Date : Dec 10 2017 10:43:33Diagnosis:SINUS BRADYCARDIAOTHERWISE NORMAL ECGConfirmed by TALIA MENDES M.D. ([id number]) on 12/10/2017 10:43:30 AMAssessmentASSESSMENTPatient has the following medical conditions which may affect chao-operativecourseObese- BMI 31METS:Climb a flight of stairs or walk up a hill (5.50 METs)Participate in moderate recreational activities, such as golf, bowling, dancing,doubles tennis, or throwing a baseball or football (6.00 METs)Patient denies any chest pain or undue shortness of breath with the abovephysical activity.ASA Class: 2ANESTHESIA FINDINGS:Intubation History: No history of difficult intubationSignificant Anesthesia Considerations: NoneAirway Exam: General: Normal appearance Mallampati Score is CLASS I ULBT: Class I - Lower incisors can bite the upper lip above the vermillionline Neck: Distance from hyoid to mentum during neck extension is at least 3 fingerbreaths, Limited movement extension Mouth: Normal tongue size and Mouth opening greater than 2 finger breaths Dentition: IntactAirway History: No abnormal airway historySTOP BANG Score:Criteria:SnoringAge over 50 (62 year old)Male genderScore = 3PLANThis patient is optimally prepared for surgeryCONSULTS:Patient does not require consults for optimization at this time.The Following Tests/Procedures Have Been Initiated:Orders Placed This Encounter URINE CULTURE Order Specific Question: Source Answer: URINE-MIDSTREAM CLEAN CATCH HYDROcodone-Acetaminophen 7.5-300 mg tab Sig: Take 1 tablet by mouth every 6 hours as needed. Refill: 0 ECG COMPLETE W INTERPRETATION, Labs ordered by surgeonPlanned Anesthetic: Per anesthesia choiceInstructions Given to Patient:Patient given verbal and written preop instructions and voices comprehension andcompliance.SIGNATURE: Camille Barrientos APRN.CNP PATIENT NAME: Chela DuganDATE: December 09, 2017 : 9:12 AM PAGER/CONTACT #:Previous Jj Barrientos APRN.CNP 12/09/2017 9:45 AM SignedPATIENT PREOPERATIVE INSTRUCTIONSAmpsSonia MD has scheduled you for your procedure at this surgery center:[facility]: [phone] [address] [place] [address].Please check in on the 1st floor at registration desk 6.Please read below carefully for your personalized instructions.Blood Thinning Medications:- Stop NSAIDS (Ibuprofen, Advil, Aleve, Motrin, Celebrex, Mobic, etc.) 7 daysbefore surgery, as directed by your surgeon.- Stop Aspirin 7 days before surgery, as directed by your surgeon.- Stop Vitamin E, ALL multi-vitamins, herbals and dietary supplements 7 daysbefore surgery.- You may take Tylenol (Acetaminophen) or any of your pain medications that donot contain aspirin or NSAIDS as needed.Dietary Restrictions:- No solid food after midnight.- You may have 12 ounces of clear liquids (water, clear juices such as applejuice or gatorade, carbonated beverages, clear tea, black coffee, jello) until 2hours before scheduled arrival at facility.Pain Medications:- Your pain medication may cause thinning of your blood. Please see directionsfor Blood Thinning Medications.Medications:Approv ed medications to take the morning of surgery with a sip of water: NONEIf you take any medications for erectile dysfunction-Cialis (Tadalafil),Levitra, Staxyn (Vardenafil) Viagra (Sildenenafil please do not take these for48 hours before surgery.If you start any new medications after today's visit, please contact the surgerycenter above.Important Reminders:- Candy, mints, gum and tobacco products are NOT permitted the morning ofsurgery.- Hearing aids, dentures and glasses may be worn the morning of surgery.- NO jewelry, body piercings, makeup, nail wolof, hairpins or contacts are anjelica worn the day of surgery.- Hibiclens shower.- CHG wipes provided with instructions.If you develop symptoms such as a fever, cold, or flu, or have other changes [facility] within TWO DAYS of scheduled surgery or the morning of surgery,please contact the surgery center above.Personal Belongings:- Leave ALL valuables and money at home or with family members.For Outpatient Procedures: - YOU MUST HAVE A RESPONSIBLE STRATEGIC PROCUREMENT MANAGER TAKE YOU HOME. A INTERNAL MEDICINE PHYSICIAN ASSISTANT OR CAB DRIVERCANNOT BE MADE A RESPONSIBLE STRATEGIC PROCUREMENT MANAGER.- We recommend that a responsible person stays with you overnight to take careof you.- You cannot stay in a hotel alone after outpatient surgery. You will not bepermitted to have your surgery, if you do not have someone to take care of you. Arrival Time for Surgery:- The Surgery Center or hospital where you are having surgery will call theafternoon before surgery (or Saturday for Saturday surgery) with a scheduled arrivaltime.- If you have not heard by 4 pm, please contact the surgery center above.Please be aware that emergency situations arise, which may delay or change yoursurgical time. If this happens, we will notify you as soon as possible andregret any inconvenience.Camille Barrientos APRN.Kalli Barrientos APRN.CNP 12/10/2017 11:38 AM SignedCalled patient and advised + nasal swab. Reviewed instructions for mupirocin -patient stated understanding. Rx sent to Bret Barrientos APRN.CNPedward 2017 11:38 AM Normal [facility] Vital Signs Date Time Vital Sign Value Performing Clinician Facility 08-03-2022 10:09-0500 Body height 167.64 cm Jace Lindsey MD Work Phone: OA-Zanqmrgsqbvcqk[facility] Work Phone: 08-03-2022 10:09-0500 Body mass index (BMI) [Ratio] 33.78 kg/m2 Jace Lindsey MD Work Phone: BO-Wxamdkpnssohnc-[address] Work Phone: 08-03-2022 10:09-0500 Body surface area Derived from formula 2.04 m2 Jace Lindsey MD Work Phone: HJ-Ubxlwmdfsxfena-[address]v [address] Work Phone: 08-03-2022 10:09-0500 Body weight 94.94 kg Jace Lindsey MD Work Phone: GX-Rfodfcorhymhaq-Ym [address] Work Phone: 07-06-2022 10:54-0500 Body height 167.64 cm Jace Lindsey MD Work Phone: KT-Fzflcmislevtrv-Ia [address] Work Phone: 07-06-2022 10:54-0500 Body mass index (BMI) [Ratio] 33.79 kg/m2 Jace Lindsey MD Work Phone: QX-Hbcgrzdrljiqjb-Ra [address] Work Phone: 07-06-2022 10:54-0500 Body surface area Derived from formula 2.04 m2 Jace Lindsey MD Work Phone: HZ-Irgrrmftccjopz-Fy benoit 395 Work Phone: 07-06-2022 10:54-0500 Body weight 94.97 kg Jace Lindsey MD Work Phone: AM-Ashucaktiecbus-Fu [place] Work Phone: 07-06-2022 10:54-0500 0 1 Jace Lindsey MD Work Phone: RX-Cewszkeytrwblp-Fv ben[address] 395 Work Phone: Comment on above: [employer] 12-12-2021 18:10-0400 Body height 164.47 cm Lavonne Tran Other [facility] Other 12-12-2021 18:10-0400 Body mass index (BMI) [Ratio] 32.86 kg/m2 Lavonne Tran Other [facility] Other 12-12-2021 18:10-0400 Body temperature 97.7 [degF] Lavonne Tran Other [facility] Other 12-12-2021 18:10-0400 Body weight 88.91 kg Lavonne Tran Other [facility] Other 12-12-2021 18:10-0400 Diastolic blood pressure 79 mm[Hg] Lavonne Tran Other [facility] Other 12-12-2021 18:10-0400 Respiratory rate 18 /min Lavonne Tran Other [facility] Other 12-12-2021 18:10-0400 SaO2% (BldA) [Mass fraction] 98 % Lavonne Tran Other [facility] Other 12-12-2021 18:10-0400 Systolic blood pressure 115 mm[Hg] Lavonne Tran Other [facility] Other Encounters Encounter Date Encounter Type Care Provider Facility Start: 09-09-2023 End: 09-09-2023 ambulatory VINCENZO MCGARRY Not Available Start: 07-03-2023 End: 07-03-2023 ambulatory VINCENZO MCGARRY Not Available Start: 08-03-2022 Postop follow up vis it related to original px Jace Lindsey MD Work Phone: OU-Ctcmtohhjgsfjt-Yjwdj 395 Work Phone: Start: 08-03-2022 ambulatory Jace Lindsey Facility: [id number] Start: 07-27-2022 End: 07-27-2022 ambulatory Vincenzo Mcgarry II Facility:[facility] Start: 07-06-2022 Office consultation new/estab patient 60 min Jace Lindsey MD Work Phone: EH-Ainfuthhbxzinm-Doipo 395 Work Phone: Start: 07-06-2022 ambulatory Vincenzo Mcgarry II Facility:[id number] Start: 06-07-2022 End: 06-08-2022 ambulatory [place]ito Callahan [place] [place]: 03-28-2022 End: 03-29-[address] VINCENZO MCGARRY Facility: Start: 12-12-2021 End: 12-12-2021 ambulatory Lavonne Tran Other [facility] Other Start: 12-12-2021 Office outpatient vi sit 15 minutes Lavonne Tran [facility] Start: 05-30-2021 ([facility] C Vac) [facility] Co vid Vaccine Lory Faustin [facility] Start: 05-30-2021 End: 05-30-2021 ambulatory Lory Faustin Other [facility] Other Start: 05-02-2018 End: 05-03-2018 [facility] Start: 01-31-2018 End: 01-31-2018 Emergency department patient visit VINCENZO MCGARRY [facility] Start: 12-19-2017 End: 12-20-2017 Patient encounter procedure SONIA BARROS [facility] Procedures Date Procedure Procedure Detail Performing Clinician Start: 01-31-2018 Ct cervical spine w/ o contrast material VINCENZO MCGARRY Start: 12-09-2017 Antibody screen SONIA BARROS Comment on above: Performed By: #### T [id number] ####[facility] [place], [place] [phone] Procedure on neck Jace lora MD Work Phone: Immunizations Immunization Date Immunization Notes Care Provider Wendi tom 05-30-2021 COVID-19 Yashira Faustin Other [facility] Other Payers Date Payer Category Payer Unknown [id number] 2018 Unknown [id number] 1958 Medicare [id number] 2. [id number] 1955 Unknown [id number] 2.16.84 [id number] 1955 Unknown [id number] 2.16.8 [id number] 1956 Unknown [id number] 2.16. [id number] 1956 Unknown [id number] 2.16. [id number] 1956 Unknown [id number] 2.16. [id number] 1956 Unknown [id number] 2.16.84 [id number] 1956 Unknown [id number] 2.16.84 [id number] Unknown Social History Date Type Detail Facility Unknown if ever smoked [facility] Other Sex Assigned At Sex Assigned At Bir th [facility] Other Non-smoker Non-smoker MG-Otolaryngolo gy-[place] [address] Work Phone: History of Present illness Narrative 08-03-2022 Note Date & Type Note Facility 08-03-2022 History of Present illness Narrative doing well. here for splint removalnasal splints removednasal swelling expectedseptum midlinenasal airway patent blcontinue saline sprays and vaseline ointment to naresRTC 4-6 months or prn if doing well HH-Jtxgszealuxdps-Mwvdd 395 Work Phone: Clinical Note 07-27-2022 Note Date & Type Note Facility 07-27-2022 Note PROCEDURE DETAILS Preoperative Diagnosis: Septal deviation Nasal obstruction Inferior turbinate hypertrophy Nasoseptal deformity Postoperative Diagnosis: same Surgeon: César Resident/Fellow/Other Rn Employee Health: [employer] Procedure: 1. Revision septorhinoplasty 2. Bilateral inferior turbinate reduction Estimated Blood Loss: 5cc Findings: Severely weakened caudal and dorsal septum with an S-shaped deformity of the caudal septum; inferior turbinate hypertrophy bilaterally, scarred and thickened left caudal mucoperichondrium Specimens(s) Collected: no, Operative Report: The patient presented with nasal obstruction. The patient was found to have significant nasal septal deviation, nasal valve collapse, and inferior turbinate hypertrophy. The patient also had significant nasoseptal deformity as a sequela of previous surgery with external nasal twist prompting reconstructive rhinoplasty effort. I discussed with the patient, in detail, the risks, benefits, limitations, and alternatives to the planned procedures. Risks discussed included but were not limited to infection, bleeding, septal perforation, synechia, need for further surgery, failure to achieve our desired results, worsened breathing, and worsened appearance. The patient expressed understanding of each of these complications and had all questions answered. DESCRIPTION OF PROCEDURE: The patient was brought to the operating room and placed in the supine position, then intubated under general anesthesia. The nose was injected with 1% lidocaine with epinephrine and then packed with decongestant-soaked pledgets. The face was prepped and draped in the usual sterile fashion. A left hemitransfixion incision was performed and mucoperichondrial flaps were elevated on the left and subsequently the right after crossing over the cartilage. The deviated septum was treated by removing deformed quadrangular cartilage and bony septum and septal cartilage was harvested, taking care to preserve a >1.0 cm L-shaped strut. Portions of the caudal septum were deformed and excised violating the L-strut support. A bone graft was harvested from the ethmoid perpendicular plate. This was shaped with rasps and osteotomies for appropriate grafting in the nasal construct. Multiple drill holes were created in the bone for fixation of the graft at the nasal construct. A 3mm osteotome was then used to resect portions of the anterior nasal spine for preparation of grafting of the bone. The nasal tip was stabilized with the use of: suture fixation of septum to nasal spine and caudal septal replacement graft. The bone graft was secured to the ANS and positioned up to the nasal tip. Bilateral inferior turbinate reduction and lateralization was then performed. A G.ho.st fine needle tip bovie electrocautery was used to perform intramural cauterization for submucous resection bilaterally. A [place] elevator was then used to outfracture the inferior turbinate bilaterally. We then turned our attention to closure. Meticulous closure was performed using fast gut in a simple, interrupted fashion. The nose was gently cleansed with sterile saline and an nasal splint was placed in the usual fashion. This concluded the goals of the procedure. The patient was turned over to Anesthesia, extubated, and transferred to the PACU. Attestation: Note Completion: Attending AttestationI was present for the entire procedure I am a:Resident/Fellow Electronic Signatures: Jace Lindsey) (Signed 27-Jul-2022 16:40) Authored: Post-Operative Note, Chart Review, Note Completion Co-Signer: Post-Operative Note, Chart Review, Note Completion Sandie Pierson (Resident)) (Signed 27-Jul-2022 14:32) Authored: Post-Operative Note, Chart Review, Note Completion Last Updated: 27-Jul-2022 16:40 by Jace Lindsey) [facility] Clinical Note 07-27-2022 Note Date & Type Note Facility 07-27-2022 Note History & Physical R eviewed: I have reviewed the History and Physical dated: 02-Jul-2022 History and Physical reviewed and relevant findings noted. Patient examined to review pertinent physical findings.: No significant changes Home Medications Reviewed: no changes noted Allergies Reviewed: no changes noted ERAS (Enhanced Recovery After Surgery): ERAS Patient: no Consent: COVID-19 Consent: COVID-19 Risk ConsentSurgeon has reviewed reardon risks related to the risk of kaylen COVID-19 and if they contract COVID-19 what the risks are. Attestation: Note Completion: I am a: Resident/Fellow Attending AttestationI saw and evaluated the patient. I personally obtained the reardon and critical portions of the history and physical exam or was physically present for reardon and critical portions performed by the resident/fellow. I reviewed the resident/fellows documentation and discussed the patient with the resident/fellow. I agree with the resident/fellows medical decision making as documented in the note. I personally evaluated the patient [id number] Electronic Signatures: Jace Lindsey) (Signed 27-Jul-2022 07:59) Authored: Note Completion Co-Signer: History & Physical Reviewed, ERAS, Consent, Note Completion Sandie Pierson (Resident)) (Signed 27-Jul-2022 05:58) Authored: History & Physical Reviewed, ERAS, Consent, Note Completion Last Updated: 27-Jul-2022 07:59 by Jace Lindsey) [facility] Evaluation note 12-12-2021 Note Date & Type Note Facility 12-12-2021 Evaluation note Encounter Date Diagnosis Assessment Notes Dec, Acute pain of right knee (ICD-10 - M25.561) Dec, Knee effusion, right (ICD-10 - M25.461) Use RICE therapy as discussed: Rest, Ice Compression, Elevate. Apply ice to affected area 3-4 times daily (Do not place ice source directly on skin, must cover with towel-like material). Take medication as directed. Rest and elevate sore extremity as much as possible. Do not take OTC medication pain relievers if prescription of medication given in office today. Contact office if no improvement of symptoms and we will help you get into a specialist. [facility] Other Evaluation note 05-30-2021 Note Date & Type Note Facility 05-30-2021 Evaluation note Encounter Date Diagnosis Assessment Notes May, Encounter for immunization (ICD-10 - Z23) Patient presents for COVID-19 vaccination BOOSTER. Pre-screening form answers evaluated with patient. Patient denies current illness or allergic reaction to component of COVID-19 vaccine. Patient provided with current copy of EUA. [facility] Other History general Narrative - Reported Note Date & Type Note Facility History general Narrative - Reported Type Medical History allergies Surgical History hand surgery Surgical History nasal surgery Surgical History cholecystectomy Hospitalization History See past surgical hx [facility] Other History of Present illness Narrative Note Date & Type Note Facility History of Present illness Narrative Reason for consult: Nasal obstructionReferring physician: Dr. Holguin Complaint: Obstructed breathingConstant, present year round, does not fluctuate. It affects the patients ability to sleep, exercise, and is troubling during the day.Symptoms began: years agoNasal steroid or spray: has attempted flonase > 6 weeks without benefitSite of obstruction: right > leftPrevious Otolaryngology Physician: Dr. Cortes documentation for this patient was extensively reviewed including specific reasons for evaluation. Complex nature of complaint and medical issues prompting evaluation for surgical consideration by facial plastic & reconstructive surgeon.Previous surgery: previous nasal fracture and septorhinoplasty 20 years ago, now with failure to resolve obstruction right > leftPrevious CT/MRI imaging of the nasal cavity and sinuses: pending upload for reviewTrauma history: traumatic nasal injury with nasal fracture and subsequent septorhinoplasty 20 years agoSleep apnea or snoring history: deniesAllergic rhinitis, sinusitis history: previous sinus surgery 20 years agoSmoking: deniesAesthetic concern: deniesPast, family, and social history obtained but not pertinent to current problem other than documented in HPI:All other systems have been reviewed and are negative for complaint.Physical examGeneral: Well-developed and well-nourished in appearance.Skin: No rashes or concerning lesions on the visible portions of the skin.Eyes: Extraocular movements intact. Visual starr grossly normal.Ears: Pinna are normal in shape and position. External canals are patent.Oral Cavity/Oropharynx: Dentition is intact. Mucous membranes moist. No masses or lesions. Tonsils are symmetric and non-obstructive.Neck: Midline trachea without masses or lesions. Thyroid is normal in size.Lymphatics: No palpable cervical lymphadenopathyRespiratory: No respiratory distress. Quiet breathing without stertor or stridor.Cardiovascular: Regular rate and rhythm. Warm extremities with equal pulses.Psych: Normal mood and affect. Judgement and insight appropriate.Neuro: Alert and oriented. CN II-XII grossly intact. No focal deficits.Musculoskeletal: Gait intact. Moves all extremities well without apparent deformities.A comprehensive facial exam was performed with the following highlights:dorsal nasal deviation to the rightSeptum: deviated to the right caudally, deflectionInferior turbinates: hypertrophied blNasal valve angle: reduced blIntranasal examination performed with limited view on anterior rhinoscopy.Procedures:Procedure: Rigid diagnostic nasal endoscopySurgeon: Frank Bhattthesia: NoneTimeout: PerformedFindings: A 0-degree rigid endoscope was passed through the patient's bilateral naris. The first pass was along the floor of the nose to the nasopharynx. The second pass was to the area of the middle meatus. The third pass was to the sphenoethmoidal recess.Septum: Deviation is S shaped with bilateral obstruction approximately 90% without perforations nor synechia.Internal Nasal Valve: Angle is reduced, narrowing the nasal airway bilaterally.Right nasal cavity:Inferior turbinate: 2+Inferior meatus: Clear, no discharge, no polyps/masses/lesionsMiddle meatus: Clear, no discharge, no polyps/masses/lesions. post surgical changes presentLeft nasal cavity:Inferior turbinate: 2+Inferior meatus: Clear, no discharge, no polyps/masses/lesionsMiddle meatus: Clear, no discharge, no polyps/masses/lesions. post surgical changes presentNasopharynx: Clear, no discharge, no masses/lesionsModified [place] Maneuver: Performed with a cotton tipped applicator, markedly improves breathing bilaterally. YF-Mycieevkyhgrze-[facility] Work Phone: Summary Purpose Family History No Family History Records FoundUnknown Family Member Name Dates Details : Father, Mother, Si ster Status:Active Family history of cerebrovas cular accident (CVA): Father, Brother, Sister(V17.1, Z82.3) Status:Active Heart problem: Mother, Broth er Status:Active Family history of diabetes m ellitus: Sister(V18.0, Z83.3) Status:Active Unknown Family Member Name Dates Details : Father, Mother, Si ster Status:Active Family history of cerebrovas cular accident (CVA): Father, Brother, Sister(V17.1, Z82.3) Status:Active Heart problem: Mother, Broth er Status:Active Family history of diabetes m ellitus: Sister(V18.0, Z83.3) Status:Active Advance Directives No Advanced Directives Records FoundNo Advanced Directives Records FoundNo Advanced Directives Records FoundNo Advanced Directives Records FoundNo Advanced Directives Records FoundNo Advanced Directives Records FoundNo Advanced Directives Records FoundNo Advanced Directives Records FoundNo Advanced Directives Records Found Hospital Course Note HNO ID: [id number]: Mitali Sheldon (Pa)e: NeurosurgeryAuthor Type: Physician AssistantType: Discharge SummariesFiled: 12/22/2017 11:14 AMNote Text:DISCHARGE SUMMARYPATIENT NAME: Chela Dugan ADMISSION DATE: 12/19/2017MRN: [id number] DISCHARGE DATE: 12/20/2017ATTENDING PHYSICIAN: Sonia Chavez FOR HOSPITALIZATION: surgical operationDIAGNOSIS: Principal Problem: Cervical disc disorder with radiculopathyResolved Problems: * No resolved hospital problems. *OPERATIONS DURING HOSPITALIZATION: C5-6, 6-7 ACDF with platePROCEDURES DURING HOSPITALIZATION: No procedures performedHOSPITAL COURSE: Patient did well intra and postoperatively. Nocomplications. The day of discharge his pain was improved. No newweakness. The patient was ambulating and had voided. He was eating anddrinking normally. The incision was CDI. Discharged home on regular diet.LABS AND PROCEDURES PENDING AT DISCHARGE: No pending results.CONSULTING TEAMS DURING HOSPITALIZATION: NonePATIENT CONDITION AT DISCHARG (more content not included)... Note HNO ID: [id number]: Triston Gillespie: NeurosurgeryAuthojerri Type: PhysicianType: Brief Op NoteFiled: 12/19/2017 3:00 PMNote Text:BRIEF OPERATIVE / PROCEDURE NOTELOG ID: [id number]/PROCEDURE DATE: 12/19/2017INCISION/PROCEDURE START TIME: 12:29 PMINCISION CLOSE/PROCEDURE END TIME: 2:47 PMSURGEON(S)/PROCEDURALIST(S) AND PATIENT PARTNER(S):Surgeon(s) and Role: * Sonia Barros - PrimaryPhysician Rn Employee Health: Yas Delgado (Pa)/PROCEDURE(S): C5-6, 6-7 ACDF with plateANESTHESIA: GeneralFINDINGS: tight stenosisESTIMATED BLOOD LOSS: 50 mlsSPECIMENS: NoneCOMPLICATIONS: NonePRE-OP/PRE-PROCEDURE DIAGNOSIS: cervical radiculopathyPOST-OP/POST-PROCEDURE DIAGNOSIS: sameSIGNATURE: Sonia Barros MD PATIENT NAME: Chela GellerTE: December 19, 2017 : 2:59 PM PAGER/CONTACT #: Procedure Findings Note HNO ID: [id number]: Triston BarrosService: NeurosurgeryAuthor Type: PhysicianType: Brief Op NoteFiled: 12/19/2017 3:00 PMNote Text:BRIEF OPERATIVE / PROCEDURE NOTELOG ID: [id number]/PROCEDURE DATE: 12/19/2017INCISION/PROCEDURE START TIME: 12:29 PMINCISION CLOSE/PROCEDURE END TIME: 2:47 PMSURGEON(S)/PROCEDURALIST(S) AND PATIENT PARTNER(S):Surgeon(s) and Role: * Sonia Barros - PrimaryPhysician Rn Employee Health: Yas Mattson) O EvanSURGERY/PROCEDURE(S): C5-6, 6-7 ACDF with plateANESTHESIA: GeneralFINDINGS: tight stenosisESTIMATED BLOOD LOSS: 50 mlsSPECIMENS: NoneCOMPLICATIONS: NonePRE-OP/PRE-PROCEDURE DIAGNOSIS: cervical radiculopathyPOST-OP/POST-PROCEDURE DIAGNOSIS: sameSIGNATURE: Sonia Barros MD PATIENT NAME: Chela GellerTE: December 19, 2017 : 2:59 PM PAGER/CONTACT #: Chief Complaint POV, s/p revision septorhinoplasty, inferior turbinate reduction 07/27/2022 Additional Source Comments (unrecognized sect ion and content) No Status Records FoundNo Status Records FoundNo Status Records FoundNo Status Records FoundNo Status Records FoundNo Status Records FoundNo Status Records FoundNo Status Records FoundNo Status Records Found INFORMATION SOURCE (unrecogn ized section and content) DATE CREATED AUTHOR 02/09/2018 [facility] DATE CREATED AUTHOR AUTHOR'S ORGANIZ ATION 05/20/2018 [facility] DATE CREATED AUTHOR AUTHOR'S ORGANIZ ATION 12/27/2021 [facility] DATE CREATED AUTHOR AUTHOR'S ORGANIZ ATION 04/03/2022 [facility] DATE CREATED AUTHOR AUTHOR'S ORGANIZ ATION 04/13/2022 [facility] Specialist DATE CREATED AUTHOR AUTHOR'S ORGANIZ ATION 06/08/2022 [facility] DATE CREATED AUTHOR AUTHOR'S ORGANIZ ATION 08/03/2022 [facility] DATE CREATED AUTHOR AUTHOR'S ORGANIZ ATION 08/04/2022 [employer] DATE CREATED AUTHOR AUTHOR'S ORGANIZ ATION 09/10/2023 [facility] dical Specialists EPIC REASON FOR VISIT (unrecogniz ed section and content) PFIZER VACCINE BOOSTERBACK P ART OF KNEE PAIN, RIGHT KNEE FOR RECORDS PERTAINING TO PATIENTS WHO ARE OR HAVE BEEN ENROLLED IN A CHEMICAL DEPENDENCY/SUBSTANCEABUSE PROGRAM, SOME INFORMATION MAY BE OMITTED. This clinical summary was aggregated from multiple sources. Caution should be exercised in using it in the provision of clinical care. This summary normalizes information from multiple sources, and as a consequence, information in this document may materially change the coding, format and clinical context of patient data. In addition, data may be omitted in some cases. CLINICAL DECISIONS SHOULD BE BASED ON THE PRIMARY CLINICAL RECORDS. [employer] provides no warranty or guarantee of the accuracy or completeness of information in this document.
[2024-03-13] MEDS: FLUORESCEIN SODIUM 1 MG STRIP OP (16:21)
--- NOTE | 2024-03-13 16:21 | ED_ITS ---
HPI - Eye Problem General Chief complaint: Eye Problems Stated complaint: FOREIGN OBJECT EYE Time Seen by Provider: 03/13/24 16:08 Source: patient Mode of arrival: walk-in History of Present Illness HPI Narrative: 68-year-old male presents for foreign body sensation in his left eye. 2 days ago he was working under a vehicle and felt irritation in his eye. He tried to go to an eye doctor in an urgent care but they were not available so he came here. It feels like it is underneath his upper lid medially. No drainage from his eye. No symptoms in the right eye. Related Data Allergies Allergy/AdvReac Type Severity Reaction Status Date / Time diphenhydramine Allergy Severe Swelling Verified 03/13/24 16:21 [From Benadryl] of Lip/Tongue/Throat NSAIDS (Non-Steroidal Allergy Severe Swelling Verified 03/13/24 16:21 Anti-Inflamma of Lip/Tongue/Throat Review of Systems ROS0 Narrative A ten point review of systems is negative except as noted above. PFSH PFSH Social History Little interest or pleasure in doing things: not at all Feeling down, depressed, or hopeless: not at all Exam Narrative Exam Narrative: Nurses note and vital signs reviewed and patient is not hypoxic. General: The patient appears well and in no apparent distress. Patient is resting comfortably on cart. Skin: Warm, dry, no pallor noted. There is no rash noted. Head: Normocephalic, atraumatic Eye: Normal conjunctiva, no drainage, EOMI. PERRL. No conjunctival injection. Fluorescein staining and Palomo lamp examination showed no corneal abrasions. No corneal or scleral foreign body is noted. No foreign bodies found under either lid with eversion. Ears, Nose, Mouth, and Throat: oral mucosa is moist. Nares patent. Cardiovascular: Regular Rate and Rhythm Respiratory: Patient is in no distress, no accessory muscle use, lungs are clear to auscultation, no wheezing, rales or rhonchi Back: non-tender GI: Soft and nontender Musculoskeletal: No joint swelling Neurological: Awake and alert Psychiatric: Cooperative Constitutional Vital Signs, click to edit/add: Last Vital Signs Temp 97.4 F L 03/13/24 16:06 Pulse 65 03/13/24 16:06 Resp 18 03/13/24 16:06 BP 128/70 03/13/24 16:06 Pulse Ox 95 03/13/24 16:06 O2 Del Method Room Air 03/13/24 16:06 Course Vital Signs Vital signs: Vital Signs Temperature 97.4 F L 03/13/24 16:06 Pulse Rate 65 03/13/24 16:06 Respiratory Rate 18 03/13/24 16:06 Blood Pressure 128/70 03/13/24 16:06 Pulse Oximetry 95 03/13/24 16:06 Oxygen Delivery Method Room Air 03/13/24 16:06 Temperature 97.4 F L 03/13/24 16:06 Pulse Rate 65 03/13/24 16:06 Respiratory Rate 18 03/13/24 16:06 Blood Pressure 128/70 03/13/24 16:06 Pulse Oximetry 95 03/13/24 16:06 Oxygen Delivery Method Room Air 03/13/24 16:06 MDM - Eye Problem MDM Narrative Medical decision making narrative: We irrigated his eye with Mohan lens irrigation and he feels much better now and is able to be discharged home. There was likely very tiny foreign body in his eye. Treatment diagnosis and follow-up were discussed with the patient. Differential Diagnosis Differential diagnosis: Likely corneal abrasion and other (Foreign body, foreign body sensation) Discharge Plan Discharge Chief Complaint: Eye Problems Clinical Impression: Foreign body sensation, left eye Patient Disposition: Home, Self-Care Time of Disposition Decision: 16:39 Condition: Good Mode of Transportation: Private Vehicle Print Language: [place] Instructions: Eye Foreign Body (ED) Referrals: RAYMOND ROONEY [Primary Care Provider] - 1 week
[2024-03-13] MEDS: 0.9 % SODIUM CHLORIDE 500 ML 1000 ML IV (16:30)
== END 2024-03-13 16:50 | disposition home or self-care (01) ==
PROVIDERS: Emergency Provider Emergency Medicine; PCP Internal Medicine
DX: H57.8A2 Foreign body sensation, left eye (principal)
CPT/HCPCS: 99284

== ENCOUNTER 2024-08-18 21:11 | Emergency (ER) | payer MEDICARE, SELFPAY ==
[2024-08-18] VITALS (19 sets, daily range): BP systolic 131–158; BP diastolic 70–97; PULSE 47–110; TEMP 36.8; O2SAT 86–96; BMI 34.7
--- OUTSIDE RECORDS SUMMARY | 2024-08-18 21:20 | XMS_ITS | CCD ---
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 uzhnxRH0VATfAEGbuB57Mg4jmDnePp 7oDLVqPNS7SWAurFNdK9WbhP7iXmQz RVSfZYQzV5GyaZIl YZvkH671GLeuMhD8UIQyfmVqR0TqGW HnuSlaFpF8v9N8Zj1EQ5F4RP66AE09 vKAoj2E5lCP5T0Xr ZREuobcnxhofsIU5APTyZFVorC77Ou 8lrRszMb7kGAAoSUY4RRBkcYKpQ3Ig rO4lEjZcWXRuUNVf X7UctXTrGItfN198FEvvAoW3YWZvlv JhE0CeHBFbrBvjCnW6i0M7Pb7GTWe8 VZ79NC46fNRce9V9 uJL8R5MfHQLjhhretkfjvOU5IBZrYI QedX84Zc6ojMigDu2zOZXaRHV2UHGk yFBqB0ZdlE0jKtLj ZSXvDWVcW0YzqZJsIZmyK511KEtfZq C0NUPlrpXxL5PbTYWjrEjdGxG0g2N6 Gc8OQAAbCR45ZXC2 dAO2VD20KN03O7RoAhituJFqrXN+PH RhYmxlIHdpZHRoPScxMDAlJyBzdHls JH8vGy0lTRXeVGBf aIirlHEtPhJaj5dcIGTpJOhaKB2bfR jrZ9CjiYW5FNPdm9q1Jz81P50pY5Gn dXA+JQNvpNV7qDH6 kU3oPqSqHzH7TPmiI874CnVqvLDjHf xxy5pub0szcPu0OnP6IGDrceZepPgi UVX6r3EiTg96N12p BGbbGRDaVUYaUUYyICPeiDqplq6duK 9wIi8+NPWiqXX9sFA1yC5uYoXuStC6 NEtdO017GnFfbLMs Ybuzc1utd8ianOm4GiVlXOBcemOkbU pqMBO9d0QqXa85T3EmhJjsn3DfVox1 ck81jCSrr9D9pMF4 Q3CiGWJlncuqjYBezDpnGG6cQUUbsy xzLSIslU9tJDMoS5f3DcBsAfZ5AXrd I6DtjuO3VSXfyGXy DTyuLJC9S16pf5Z5GUMiQLAdQHM7gH V6zO6mkVwbkfqcaXFpdHxwjbCqsKvl SYhfESdqL676QEVv wSfdCPJdrE7yOXQehDJppIkyOR7qVW BpbjsnPkdJQkJTLCBEQVZJRDwvdGQ+ OMVhTBW6sKzrORmf CPBgeY4qGKXtW9g8FkNzUyA4VYfrI2 EfMIDdlszuFq06yO3cJqTdYgO3DMbh M6XahxA5DLKiaRAb QCtyUDP0A53fb1U6TYVsAHUoDZQ7tZ K4lZ5dtBwcjlcmiBEvxUngsnEweTzv PCsdAWetC263TFAm bPkfYwIcWtVcTlJ8YEV3Y1EiSbs5HW CpbMmoHL7iiFIcEMoiCv5lfLlkjBya BB7rBPPbfjruVZIq iP1tAKExkGBugInjZW2uKNFimyoqe8 08MlMvWAX2HTXheVYuQ3QetD3nBtGw RMTkUYNpX4NirGPb CVnlZ419GTftRhE9AWKfikOeH7JlKU GzrVouHxB3k6X9Oo23XbMFVIWvtitn dGQ+WNUmTVV0gQgi HGisWXVmsH5tLJMhP6l9NfTfRqC6KJ jvW0RjEJGzibyvNe58cO3jJxSgCwP1 WAtnR6UsdmM2QLDf xEKsRHbeACP5S86bk0B2PTFkMYQvHO C6sOB1oO1grPlsxiooxEIqaBmywvGm qOtjECcjPIwzF019 NLUpvOldFx9ybKA1F9WqTiw6BZWjpG yiCF7stCNaYCucKe9ksJuyeVuhCH6w XESdixkcAXQwtN8m OOZdzGZwmZewVM1eYBYyoqlwi818Gw XfIGG4QNKxeUMpC0GrgZ1pAcXlYVLv EOBwS0OhlKFlULja Q017YIcdPfZ6KABgwvKjH1NtZOByfT gmLmB0l6G7Od6KuBAiUXIbIW94ZL72 RB04Q7LkCxectXXp bGU+PHRhYmxlIHdpZHRoPScxMDAlJy IskByhAT7zFe9sCGClSAGeeVklfQYq NqKdx0uyJRMgTGkb BX8ihYizC4KffRG0SKJrd9l0Yp49X2 1gT0MuxAF+KYMoyHL5qQU7nP1aNrWk TjB9HEkgX678BoYj mGXjZioih7dgo5tysCh2QyZpKTJrpl YveRqsNEM1h3ZiDd03T82bKNhzFBLv PSIyMCUiIHZhbGln bw9psF2yBp2+WRMijOR6jPG8eI1qDu KnWlS4WFykT786OoJhfNOmFovlN56i Z4AaqIR+PHRyPjx0 ABNslAnoAR1mwAQmENtoRg5oSLQ2Ep PjAkUmVKhnP3HmSBRpuspukcjsiVM0 RJSeTWUzuT29Yu4b oPshPw3rAWJrRAT1YOSvnBPzM1YjaM 6oGtBzTKBsZUBoG3BxbSCrYVhmC533 NNxtXzE5MDBmtmOb M0QiZMXvgWoiKfE4b1O5Fr4QeRqjcH EqLS0vGiHrSHn5F5QwQbj4CTGgoYzr HO1poAVaATxtCp8v eFtgvGlsVY2sOLPxrpdoi334CfRbq9 vlPEFrxHUmNIyfWFH3K41au2R0NWXb WYNwZYP7yTR8xF9a bGlnbjogbGVmdDsgdmVydGljYWwtYW xrP663WNQicZsgPpBRUib4E5XiGuv7 KZVznVmwGK8qtPXe XUjsUu5wgXjuuRltEZ8qPRImbnwkl2 14XoQnp9huSPJghZLkZEczRZZ2I48a t1P2CWCjRWBnFSK1 gRC5nA6taBnjfogxnZXkhElhqxUznI sjRJhoQLikR597AFNffXznQq2BFbs8 Q6NoQml4YZNetGsq TL7xnXPmNMlvKr7yqNrznLjzTY2bEU Izgzfrc364DdYfy1keFYDdkENnRBey THA8L39ma6M7BIEi BFMyASK2lNQ8dT8efMtynrajqLRvnJ kqorZpvFgsQKmrDNhvE461JDAtyCpi PlBheWVyOjwvdGQ+ QR62wx80F7FrGjamWsi6UTMbRZW6mY U5aZ8gIEXwLIzec0Q7dNT0O9KusiIn sp2dz4htXSKqSGbq Y29s (more content not included)... Normal [facility] CT Maxillofacial w/o Contras ton 06-07-2022 CT [...] Transcribed by: ROMAINE Technologist: Maria A MONTALVO [facility] Consent for Treatmenton 05-11 Consent for Treatment [id number]:127 [facility] Physician Orderon 05-31-2022 Physician Order [id number]#[id number]:127 [facility] Physician Orderon 05-18-2022 Physician Order [id number]#1.00CD:127 [facility] MRI Shoulder w/o Lefton 11-0 MRI Shoulder w/o Left HISTORY: Left lateral [...] by Vincenzo Lake on 04/12/2022 1039 Normal [facility] Engagement Lead XR CSPINE MIN 4 VIEWSon 10- XR CSPINE MIN 4 VIEWS EXAMINATION: XR [...] by: BRAD BROWN Date: 2022-03-28 21:08 Normal [facility] XR knee RT 4V*on 12-12-2021 XR knee RT 4V* [facility] Main [place] [address] [place] [address] XRay Report Signed Patient: Chela Dugan MR#: [id number] 3 : 1955 Acct:[id number] Age/Sex: 66 / M ADM Date: 12/12/21 Loc: [facility] Room: Type: [facility] Attending Dr: Lavonne JOSEPH Copies to: LAVONNE [...] Pamela Cristina M.D.12/12/2021 5:57 PM Dictation Location: [place] [address] Transcribed By: [facility] 12/12/211756 Dictated By: Pamela Cristina MD 12/12/211753 Signed By: 12/12/211756 Normal [facility] XR knee RT 4V* [facility] [employer] Other XR knee RT 4V* [facility] Main [facility] [employer] Other XR knee RT 4V* [address] [place] [address] [employer] Other XR knee RT 4V* [place] [address] No rt [employer] Other XR knee RT 4V* XRay Report [employer] Other XR knee RT 4V* Signed [employer] Other XR knee RT 4V* Patient: Chela Dugan MR#: [id number] [place] [employer] Other XR knee RT 4V* 3 [employer] Other XR knee RT 4V* : 1955 Acct:[id number] [employer] Other XR knee RT 4V* Age/Sex: 66 / M ADM Date: 12/12/21 [employer] Other XR knee RT 4V* Loc: [facility] Room: Ty pe: REG CLI [employer] Other XR knee RT 4V* Attending Dr: Aida WILLIAMSONP-C [employer] Other XR knee RT 4V* Copies to: Saskia [facility] [employer] Other XR knee RT 4V* Ordering Provider: LAVONNE [facility] [employer] Other XR knee RT 4V* Date of Service: 12/12/21 [place] [employer] Other XR knee RT 4V* 18443) XR/XR knee RT 4V*: RIGHT KNEE PAIN [place] [employer] Other XR knee RT 4V* RIGHT KNEE - [address] [facility] [employer] Other XR knee RT 4V* COMPARISON: None [place] [employer] Other XR knee RT 4V* CLINICAL DATA: Right knee pain for the past week. Patient has been doing a lot of walking though [employer] Other XR knee RT 4V* no specific injury. N [facility] [employer] Other XR knee RT 4V* AP, lateral and both oblique views were obtained. There is no acute fracture or dislocation. [employer] Other XR knee RT 4V* There is a sclerotic area at the distal femoral metadiaphysis. This is nonspecific though might be [employer] Other XR knee RT 4V* a bone island. There is no disproportionate joint space narrowing. There is minor marginal [employer] Other XR knee RT 4V* spurring. There is a n enthesophyte at the insertion of the quadriceps tendon. A small knee [place] [employer] Other XR knee RT 4V* effusion is present. [employer] Other XR knee RT 4V* X R/XR knee RT 4V* [employer] Other XR knee RT 4V* IMPRESSION: [place] Other XR knee RT 4V* MINOR DEGENERATIVE CHANGES. [employer] Other XR knee RT 4V* NO ACUTE BONY FINDINGS. [employer] Other XR knee RT 4V* Impression dictated by: Pamela Cristina M.D.12/12/2021 5:57 PM [employer] Other XR knee RT 4V* Dictation Location: [place] [address] [employer] Other XR knee RT 4V* Transcribed By: PWS 12/12/21 175 [employer] Other XR knee RT 4V* Dictated By: Pamela Cristina MD 12/12/21 175 [employer] Other XR knee RT 4V* Signed By: [employer] Other XR knee RT 4V* 12/12/21 1757 [employer] Other Hemoglobin A1Con 08-15-2021 EAG 128.37 Normal [facility] Engagement Lead Comment on above: Performed By: #### A 1C #### [facility] [address] [place], [place] [id number] HbA1c (Bld) [Mass fraction] 6.1 % High 4.0-6.0 [facility] Comment on above: Performed By: #### A 1C #### [facility] [address], [place] [id number] Lipid Panelon 08-15-2021 Cholesterol [Mass/Vol] 230 mg/dL High 125-200 [facility] Comment on above: Result Comment: Low risk < 200mg/dL Borderline risk 201-239 mg/dl High risk > or equal to 240 Performed By: #### V ITD, LIPD #### [facility] [address] [place], [place] [id number] Cholesterol in HDL [Mass/Vol] 41 mg/dL Normal >40 [facility] Comment on above: Result Comment: High Cardiovascular Risk HDL <40 mg/dL Low Cardiovascular Risk HDL > or equal to 60 mg/dl Performed By: #### V ITD, LIPD #### [facility] [address], [place] [id number] Cholesterol in LDL [Mass/Vol] 169 mg/dL Normal [facility] Specialist Comment on above: Result Comment: LDL ATP III CLASSIFICATION LDL less than 100 mg/dl Optimal LDL 100-129 mg/dl Near or above optimal LDL 130-159 Borderline high LDL 160-189 High LDL greater than 189 mg/dl Very High Performed By: #### V ITD, LIPD #### [facility] [address], [place] [id number] Cholesterol in VLDL [Mass/Vol] 20 mg/dL Normal [facility]agement Lead Comment on above: Performed By: #### V ITD, LIPD #### [facility] [address], [place] [id number] Cholesterol.total /Cholesterol in HDL [Mass ratio] 6 {ratio} Normal [facility] Specialist Comment on above: Performed By: #### V ITD, LIPD #### [facility] [address], [place] [id number] Triglyceride [Mass/Vol] 99 mg/dL Normal 30-150 [facility]agement Lead Comment on above: Result Comment: TRIG ATPIII CLASSIFICATIONS TRIG less than 150 mg/dl Normal TRIG 150-199 mg/dl Borderline High TRIG 200-500 mg/dl High TRIG greather than 500 mg/dl Very High Performed By: #### V ITD, LIPD #### [facility] [address], [place] [id number] Vitamin D 25-OHon 08-15-2021 VIT D 25 OH 57 ng/ml Normal >29 [facility]agement Lead Comment on above: Result Comment: Neena min D Status Deficiency <20 ng/mL Insufficiency 20-29 ng/mL Optimal 30-100 ng/mL Possible Toxicity >=150 ng/mL Performed By: #### V ITD, LIPD #### [facility] [address] [place], [place] [id number] [place] 05-10-2021 L -- Specimen: [id number] Received: 05/10/21 Status: JAMAAL Sukhdeep Num: [id number] Spec Type: Surgical Subm Dr: Enmanuel Gonzalez MD Tissues: A Colon - Polyp (CECAL POLYP) Procedures: HE Stain/2, Gross/Micro L4 -- Patient Age/Sex Location Account Attending Physician -- Chela Dugan/[facility] [id number] Enmanuel Gonzalez MD -- SPEC NUM: [id number] RECD: 05/10/21 STATUS: JAMAAL SUKHDEEP NUM: [id number] SERENITY: 05/10/21- [facility] DR: Enmanuel Gonzalez MD ENTERED: 05/10/[address]: SPEC TYPE: Surgical DEPT: S ORDERED: HE Stain/2, Gross/Micro L4 ORDERED: HE [...] microscopic findings support the above pathologic diagnosis. [address] -- -- Specimen: [id number] Received: 05/10/21 Status: JAMAAL Castrejon Num: [id number] Spec Type: Surgical Subm Dr: Enmanuel Gonzalez MD Tissues: A Colon - Polyp (CECAL POLYP) Procedures: HE Stain/2, Gross/Micro L4 -- Patient: Chela Dugan [id number] (Continued) -- Signed (signature on file) David Bailey MD 05/11/21 1342 [facility] COVID-19 Antigenon COVID-19 Antigen Healthcare Worker?: [...] its performance Aldo Disclaimer characteristic determined by [employer] and Aldo Disclaimer validated at [facility]. This Aldo Disclaimer test has not been [...] is terminated or revoked sooner. PERFORMED BY: [place] [address] PATHOLOGIST BUS PERSON DISHWASHER DAVID BAILEY M.D. Normal [facility] Comment on above: Performed By: #### S DENISE, COVID-19 ALDO #### [address] Aldo Ag Negativeon 05-08-20 21 Aldo Ag Negative Negative Normal Negative [facility] Comment on above: Result Comment: This is a duplicate Aldo SARS Antigen (VERA) result to be used for statistical tracking purpose only. PERFORMED BY: [place] [id number] PATHOLOGIST BUS PERSON DISHWASHER DAVID BAILEY M.D. Performed By: #### S DENISE, COVID-19 ALDO #### [facility] [address] CBCon 05-03-2018 Erythrocyte distribution width Auto Ratio (RBC) 13.9 % Normal 11.5-15.0 [facility] Comment on above: Performed By: #### C BC ####[place] [phone] Hematocrit Auto Volume Fraction (Bld) 43.5 % Normal 39.0-51.0 [facility] Comment on above: Performed By: #### C BC ####[place] [phone] Hemoglobin mass conc (Bld) 14.3 g/dL Normal 13.0-17.0 [facility] Comment on above: Performed By: #### C BC ####[place] [phone] MCH Auto Entitic mass (RBC) 29.7 pG Normal 26.0-34.0 [facility] Comment on above: Performed By: #### C BC ####[place] [phone] MCHC Auto mass conc (RBC) 32.9 g/dL Normal 30.5-36.0 [facility] Comment on above: Performed By: #### C BC ####[place] [phone] MCV Auto Entitic volume (RBC) 90.4 fL Normal 80.0-100.0 [facility] Comment on above: Performed By: #### C BC ####[place] [phone] Platelet mean volume Auto Entitic volume (Bld) 10.7 fL Normal 9.0-12.7 [facility] Comment on above: Performed By: #### C BC ####[place] [phone] Platelets Auto #/vol (Bld) 259 10*3/uL Normal 150-400 [facility] Comment on above: Performed By: #### C BC ####[place] [id number] [place], [place] [phone] RBC Auto #/vol (Bld) 4.81 10*6/uL Normal 4.20-6.00 [facility] Comment on above: Performed By: #### C BC ####[place] [phone] WBC Auto #/vol (Bld) 11.05 10*3/uL High 3.70-11.00 [facility] Comment on above: Performed By: #### C BC ####[place] [id number] [place], [place] [phone] CNDSon 05-03-2018 CNDS HNO ID: [id number] thor: Kajal Kaufman) TristenService: General Internal MedicineAuthor Type: Nurse PractitionerType: Discharge SummariesFiled: 05/03/2018 1:49 PMNote Text:DISCHARGE NOTE (Patient Admitted Less than 48 Hours)SERVICE DATE: 05/03/2018SERVICE TIME: 1:46 PMADMISSION DATE: 05/02/2018DISCHARGE DISPOSITION: AMAParonychia Right index fingerRx or Bactrim e [facility] - Patientdeclined to waitSIGNATURE: Kajal Ramon APRN.CNP PATIENT NAME: Chela DuganDATE: May 03, 2018 : 1:46 PM PAGER: Normal [facility] NURSING PROGon 05-03-2018 Protein mass conc HNO ID: [id number] thor: Lory (Rn) KEVIN Ruvalcabaervice: (none)Author Type: Registered NurseType: Nursing Progress NoteFiled: 05/03/2018 1:15 PMNote Text: Nursing Progress NotePatient Name: Chela DuganMRN: [id number] Location: [place] [address] [address]* ___ 0800: Pt awake sitting up in [...] note was completed by: Lory Ruvalcaba RN [facility] PROGRESSon 05-03-2018 Protein mass conc HNO ID: [id number] thor: Kajal ([facility]) TristenService: General Internal MedicineAuthor Type: Nurse PractitionerType: Progress [...] continueswelling and erythema extending from finger tip correction to pip. LimitedROM DIP joint. Sensation intact.Neuro: [...] to continue treatment and will be leaving A to followwith his own MD Attempted to paper Rx Bactrim but patient declined what walked off unit. Rx for Bactrim e scripted to [facility] [place] 1:50 PM May 03IGNATURE: Kajal Ramon, SCHOOL PHOTOGRAPHS DETAILER.SUMMER ASSOCIATE PATIENT NAME: Chela DuganDATE: May 03, 2018 : 1:18 PM PAGER: [facility] 05-02-2018 [facility] HNO ID: [id number] thor: Umu (Rt) Jonathon Centeno: RadiologyAuthor Type: TechnicianType: Allied HealthFiled: 05/02/2018 10:28 AMNote Text: Radiology Service Progress NotePATIENT NAME: Chela DuganMRN: [id number] OF SERVICE: May 02, 2018TIME: 10:27 AMPATIENT IDENTITY VERIFICATION COMPLETED USING TWO (2) METHODS: Patientconfirmed name verbally and ID band matches..PATIENT GENDER DATA: MalePATIENT RELEVANT IMPLANT DATA REVIEWED: Not ApplicableRADIOLOGY DEPARTMENT: General X-ray: Exam(s) Completed: Upper ExtremityX-Ray(s): Fingers/Thumb, right :PERIPHERAL IV DATA: Not applicableSIGNED BY: Umu Centeno RTNov2017 10:27 AM Normal [facility] Basic Metabolic Panlon 05-02 Anion gap 3 molar conc 14 mmol/L Normal 9-18 [facility] Comment on above: Performed By: #### C BCDIF, BMP ####[place] [phone] Calcium mass conc 9.2 mg/dL Normal 8.5-10.5 [facility] Comment on above: Performed By: #### C BCDIF, BMP ####[place] [phone] Chloride molar conc 102 mmol/L Normal 98-110 [facility] Comment on above: Performed By: #### C BCDIF, BMP ####[place] [phone] CO2 molar conc 24 mmol/L Normal 23-32 [facility] Comment on above: Performed By: #### C BCDIF, BMP ####[place] [phone] Creatinine mass conc 0.72 mg/dL Normal 0.70-1.40 [facility] Comment on above: Performed By: #### C BCDIF, BMP ####[place] [phone] eGFR- Amer. >60 Normal >60 [facility] Comment on above: Performed By: #### C BCDIF, BMP ####[place] [phone] GFR/1.73 sq M predicted among non-blacks MDRD vol rate/area (S/P/Bld) mL/min/{1.73_m2} Normal >60 [facility] Comment on above: Performed By: #### C BCDIF, BMP ####[place] [phone] Glucose mass conc 91 mg/dL Normal 65-100 [facility] Comment on above: Performed By: #### C BCDIF, BMP ####[place] [id number] [place] [phone] Potassium molar conc 4.0 mmol/L Normal 3.5-5.0 [facility] Comment on above: Performed By: #### C BCDIF, BMP ####[place] [phone] Sodium molar conc 140 mmol/L Normal 135-146 [facility] Comment on above: Performed By: #### C BCDIF, BMP ####[place] [phone] Urea nitrogen mass conc 11 mg/dL Normal 10-25 [facility] Comment on above: Performed By: #### C BCDIF, BMP ####[place] [phone] CASE MGT INIT ASSESon 2017 CASE MGT INIT ASSES HNO ID: [id number]: Ghazal Sandoval ([place]) CapistranoService: Care ManagementAuthor Type: Social WorkerType: Care Mgt Initial AssessmentFiled: 05/02/2018 9:51 PMNote Text:CARE MANAGEMENT: ASSESSMENT AND DISCHARGE PLANSERVICE DATE: 05/02/2018SERVICE TIME: 7:33pmPRIMARY CARE PHYSICIAN:Vincenzo Mcgarry II, [facility] MED[facility] CENTERhone: [phone] STATUS: ObservationNeeds Prior to Discharge: To Be [...] Future Readmission? N/AAdvance Directive:Current Advance Directive: NoneCare Police Cadet Attempted to Assist with AD Completion: YesAction: [...] Admission: NoneHas the Patient Been in a Custodial Facility in the Past 30 days? NoSOCIAL:Living Arrangement: Home, ranch w/ zero stepsLives With: SpouseFinancial Resources: Employed: full timePrimary Contact: Extended Emergency Contact InformationPrimary Emergency Contact: Malissa Dugan Plkqte Ulucvfvz: SpouseSupportive: YesOther Important Patient Contacts: NoneCaregiver Assessment:Caregiver is ready, willing and able to meet the patient's needs asrecommended by the inter-professional team? 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 NoMedication Adherence:I am convinced of the importance of my prescription medication: Agreecompletely - 0I worry that my prescription medication will do more harm than good to meDisagree completely - 0I feel financially burdened by my [id number] expenses for myprescription medication: Disagree completely - 0Patient is categorized as low risk < 2Are you interested in bedside delivery of your medications? No, [facility] [place], [place] Concerns:In the Last Month, Have You had Trouble Getting Food? No trouble gettingfoodDuring the Last Month, Have You Worried Whether Your Food Would Run OutBefore You Had Enough Money to Buy More? NoIs the Patient Psychosocially Complex? NoASSESSMENT AND PLAN:Medical Needs: NonePsychosocial Needs: NoneFREEDOM OF CHOICE EXPLAINED:Yes pt at bedsidePOTENTIAL TRANSITION PLANSHomeTo Be DeterminedSW met with pt at bedside of ROU. Pt was AANDOx3 and willing to meet withderek ALMONTE. Pt presents w/ c/o finger injury. 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 Pt drove self to the [...] 02, 2018 : 9:42 PM PAGER/CONTACT #: [phone] Normal [facility] CBC and Differentialon 05-02 Abs Baso 0.04 k/uL Normal <0.11 [facility] Comment on above: Performed By: #### C BCSELENE BMP ####[address] Abs [place] 1.43 k/uL High <0.87 [facility] Comment on above: Performed By: #### C GAVIN BMP ####[place] [phone] Abs Neut 8.08 k/uL High 1.45-7.50 [facility] Comment on above: Performed By: #### C BCSELENE BMP ####[place] [phone] Basophils/100 WBC Auto (Bld) 0.3 % Normal [facility] Comment on above: Performed By: #### C BCSELENE BMP ####[place] [phone] DTYPE Auto Diff Normal [facility] Comment on above: Performed By: #### C BCSELENE BMP ####[place] [phone] Eosinophils Auto #/vol (Bld) 0.15 10*3/uL Normal <0.46 [facility] Comment on above: Performed By: #### C BCDIF, BMP ####[place] [phone] Eosinophils/100 WBC Auto (Bld) 1.2 % Normal [facility] Comment on above: Performed By: #### C BCDIF, BMP ####[place] [phone] Erythrocyte distribution width Auto Ratio (RBC) 13.9 % Normal 11.5-15.0 [facility] Comment on above: Performed By: #### C BCDIF, BMP ####[place] [phone] Hematocrit Auto Volume Fraction (Bld) 48.5 % Normal 39.0-51.0 [facility] Comment on above: Performed By: #### C BCDIF, BMP ####[place] [phone] Hemoglobin mass conc (Bld) 16.0 g/dL Normal 13.0-17.0 [facility] Comment on above: Performed By: #### C BCDIF, BMP ####[place] [phone] Lymphocytes Auto #/vol (Bld) 2.53 10*3/uL Normal 1.00-4.00 [facility] Comment on above: Performed By: #### C BCDIF, BMP ####[place] [phone] Lymphocytes/100 WBC Auto (Bld) 20.7 % Normal [facility] Comment on above: Performed By: #### C BCDIF, BMP ####[place] [phone] MCH Auto Entitic mass (RBC) 30.0 pG Normal 26.0-34.0 [facility] Comment on above: Performed By: #### C BCDIF, BMP ####[place] [phone] MCHC Auto mass conc (RBC) 33.0 g/dL Normal 30.5-36.0 [facility] Comment on above: Performed By: #### C BCDIF, BMP ####[place] [phone] MCV Auto Entitic volume (RBC) 90.8 fL Normal 80.0-100.0 [facility] Comment on above: Performed By: #### C BCDIF, BMP ####[phone] Monocytes/100 WBC Auto (Bld) 11.7 % Normal [facility] Comment on above: Performed By: #### C BCDIF, BMP ####[place] [phone] Neutrophils/100 WBC Auto (Bld) 66.1 % Normal [facility] Comment on above: Performed By: #### C BCDIF, BMP ####[place] [phone] Platelet mean volume Auto Entitic volume (Bld) 10.8 fL Normal 9.0-12.7 [facility] Comment on above: Performed By: #### C BCDIF, BMP ####[place] [phone] Platelets Auto #/vol (Bld) 277 10*3/uL Normal 150-400 [facility] Comment on above: Performed By: #### C BCDIF, BMP ####[place] [phone] RBC Auto #/vol (Bld) 5.34 10*6/uL Normal 4.20-6.00 [facility] Comment on above: Performed By: #### C BCDIF, BMP ####[place] [phone] WBC Auto #/vol (Bld) 12.23 10*3/uL High 3.70-11.00 [facility] Comment on above: Performed By: #### C GAVIN, KEILY ####[facility] [place], [place] [phone] CONSULTon 05-02-2018 CONSULT HNO ID: [id number] thor: Nubia Santiago ElbaService: Orthopaedic SurgeryAuthor Type: PhysicianType: ConsultsFiled: 05/02/2018 7:18 PMNote Text:CONSULTATION - ORTHOPEDICS - HANDSERVICE DATE: 05/02/2018SERVICE TIME: 7:08 [facility]CLARIHAVAS[facility]ICAL CENTERY CARE PHYSICIAN: Vincenzo Mcgarry II, MDSubjectiveCHIEF COMPLAINT: Pain in the Right Index fingerHPI: [...] resolved hospital problems. *Medication and Non-Pharmacologic VTE Prophylaxis/Miabbvkoufxyqy39/2 08/25 1530 vte non-pharmacologic prophylaxis - none indicated (fl,oh)05/02/18 1530 activity - mobilize patient (fl,oh)VTE Prophylaxis: VTE prophylaxis appropriateSIGNATURE: Nubia Arreola MD PATIENT NAME: Chela DuganDATE: May 02, 2018 : 7:08 PM PAGER/CONTACT #: [phone] [facility] ED NOTEon 05-02-2018 ED NOTE HNO ID: [id number] thor: Wilbur (Rn) Salena, RNService: NursingAuthor Type: Registered NurseType: ED NotesFiled: 05/02/2018 10:53 AMNote Text: Right index finger edematous and reddened with streaking to base offinger. Pt complains of pain. Seen by MD and plan is for xray and IANDD. 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 The patient has had recurrent [...] hematoma No Dislocation No Deformity [place]out[place]re [place] Neck No Finger/Joint Instability FDS/FDP/ED intact in [...] I discussed the case with Dr. Lawson, beauty consultant for hand surgery,he requests IV antibiotics and admission to CDU.The patient was ADMITTED TO: CDU.Condition at time of disposition: stablePLEASE NOTE: Portions of the medical record may have been produced usingelectronic temper mill operator and may contain errors with respect totranslation of words which may not have been identified prior tofinalization of the chart.SIGNATURE: Alex Browne 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 He routinely cuts his hands. Theswelling and pain of his finger began several days ago. He was evaluatedin an urgent care center and placed on Keflex. His finger became worse sohe came to the ED [facility] for further evaluation and therapy. He deniesfever [...] Potter DODATE: May 02, 2018TIME: 3:07 PM [facility] NURSING PROGon 05-02-2018 Protein mass conc HNO ID: [id number] thor: Rubi (Rn) KEVIN Freedervice: NursingAuthor Type: Registered NurseType: Nursing Progress NoteFiled: 05/02/2018 7:16 PMNote Text: Nursing Progress NotePatient Name: Chela DuganMRN: [id number] Location: [id number]-[id number]-1999/[address]* ___Daily Note:05/02/2018-Dr Simpson at bedside, diet can be ordered and pt will be npo afterbreakfast and reevaluated in the morning. Pt updated on POC.This note was completed by: RUBI FREED RN [facility] Protein mass conc HNO ID: [id number] thor: Rubi Olvera) KEVIN Freedervice: NursingAuthor Type: Registered NurseType: Nursing Progress NoteFiled: 05/02/2018 7:15 PMNote Text: Nursing Progress NotePatient Name: Chela Sandoval JadenMRN: [id number] Location: [place] [address] [address]* ___Transfer Note:Patient transferred into room/unit 532-1. Actions taken: patient arrivedto CDU. Admission and assessment to be completed.This note was completed by: RUBI FREED RN [facility] PLAN OF CAREon 05-02-2018 PLAN OF CARE HNO ID: [id number] thor: Yumiko Fountain (Pharmacist)Service: PharmacyAuthor Type: PharmacistType: Plan of CareFiled: 05/02/2018 1:21 PMNote Text:MEDICATION HISTORYPatient Name:Alexandria DuganMRN: [id number]: 1955Source of history:Patient: Reliability of source: Appears reliable,clearly identified: Medication name and Timing of last dose andprescription bottles providedMedication Nonadherence Identified: No barriers notedThe above information represents the best possible medication history: YesAdditional comments: N/AAllergies:ALLERGIESAllergen Reactions- Benadryl [Diphenhyd* Swelling Tongue swelling- Nsaids (Non-Steroid* Swelling Tongue swellingCurrent MANUFACTURING QUALITY INSPECTOR Medications:Prior to Admission medications as of 05/02/18 [...] for Pain. 05/01/2018 at Unknown time Carmencita Fountain, VincentMay 02, 2018 1:21 PM [facility] XR DIGIT 3V FRONTAL/LAT/OBL RTon 05-02-2018 [...] soft tissue swelling without evidence of foreign body.Learning And Development Manager: DIMITRI Transcribe Date/Time: May 02 2018 10:48ADictated by : EVELYN WALSH MDThis examination was interpreted and the report reviewed and electronically signed by: EVELYN WALSH MD on May 02 2018 10:52AM [id number] Normal [facility] CT CERVICAL SPINE WO CONTRAS Ton 01-31-2018 [...] by:TAYLOR Yungigned by:Daxa Camacho MD01/31/18inal result Normal [facility] ED Provider Noteon 8 HIM IP Note OR Science Interpreter Normal [facility] CASE MANAGEMon 12-20-2017 Protein mass conc HNO ID: [id number] thor: Vincenzo VillalobosSerfere: (none)Author Type: (none)Type: Care Mgt Progress NoteFiled: 12/20/2017 3:11 PMNote Text:CARE MANAGEMENT DISCHARGE NOTESERVICE DATE: 12/20/2017SERVICE TIME: 3:11 PM LOS: 0 daysNeeds Prior to Discharge: None;Ready for DischargePt for DC home with no needs. Family to transport home.SIGNATURE: Vincenzo Villalobos PATIENT NAME: Chela DuganDATE: December 20, 2017 : 3:11 PM PAGER/CONTACT #: [phone] [facility] PROGRESSon 12-20-2017 Protein mass conc HNO ID: [id number] thor: Yas (Shaheen) O Rickie: NeurosurgeryAuthor Type: Physician AssistantType: Progress NotesFiled: 12/20/2017 [...] infection or drainageLABS:CBC, Coags, BMP, Mg, PhosURINALYSISSpecific [place], UrDate Value Ref Range Iiszce0812/09/2017 1.027 1.005 - 1.030 Final Glucose, UrineDate Value Ref Range Jdjdkc2212/09/2017 Negative Negative mg/dL Final Bilirubin, UrineDate Value Ref Range Lkylwt1112/09/2017 Negative Negative Final Ketones, UrineDate Value Ref Range Xkqigl3512/09/2017 Negative Negative Final Hemoglobin/Bloo d,UrDate Value Ref Range Sutpmz9307/2017 Negative Negative Final Protein, UrineDate Value Ref Range Otrfmq8612/09/2017 Negative Negative mg/dL Final Yas Roman PA-C Normal [facility] THERAPY NTon 12-20-2017 THERAPY NT HNO ID: [id number] thor: Rosio (Pt) PapcunService: Physical TherapyAuthor Type: Physical TherapistType: Therapy (PT/OT/Speech/Resp)Filed: 12/20/2017 2:18 PMNote Text:Physical Therapy EvaluationSERVICE DATE: 12/20/2017SERVICE TIME: 1115 to 1140ROOM: [id number] Discharge Disposition: HomeAnticipated Discharge Needs: Supervision at [...] Diagnosis: No Skilled NeedInterventions Provided: Evaluation;Gait Training (55813)$ Evaluation-Low (63392) Billed Units: 1 unitGait Training (60722) Treatment Minutes: 101 unitSkilled Intervention(s): gait skills/transfers [...] December 20, 2017 : 2:13 PM Normal [facility] THERAPY NT HNO ID: [id number] thor: Clau (Ot) GarnekService: Occupational TherapyAuthor Type: Occupational TherapistType: Therapy (PT/OT/Speech/Resp)Filed: 12/20/2017 11:34 AMNote Text:Occupational Therapy EvaluationSERVICE DATE: 12/20/2017SERVICE TIME: 0745 to 0810ROOM: ON-[id number]-29Uxtfjubl Radiculopathy, S/P Anterior Cervical Fusion, C5-6, 6-7 [...] current level. Pt is currently working full-timefor [employer], and enjoys working on cars. Pt resides near [facility] a blended family of four children, however [...] dailyliving (ADL);Muscle Weakness (generalized)Interventions Provided: Evaluation;Therapeutic Activity (65590)$ Evaluation-Low (05191) Billed Units: 1 unitTherapeutic Activity (84702) Treatment Minutes: 101 unitSkilled Intervention(s): Instructed patient [...] 25FUNCTIONAL G CODE:OT 6 Clicks Score: 24 (12/20/17 0045)$ Self Care Current Status (G8987): (12/20/17744)$ Self Care Goal Status (G8988): (12/20/17744)Based on clinical assessment and the score [...] DuganDATE: December 20, 2017 : 11:23 AM [facility] ANES Madhu 12-19-2017 ANES POST HNO ID: [id number] thor: Faraz ValienteoService: AnesthesiologyAuthor Type: AnesthesiologistType: Anesthesia PostOpFiled: 12/19/2017 3:34 [...] 19, 2017 : 3:33 PM PAGER/CONTACT #: [phone] [facility] ANES PREOPon 12-19-2017 ANES PREOP HNO ID: [id number] thor: Rell Chiu VeberService: AnesthesiologyAuthor Type: AnesthesiologistType: Anesthesia PreOpFiled: 12/19/2017 10:53 AMNote Text:REGIONAL ANESTHESIOLOGY DAY OF SURGERY NOTEPATIENT NAME: Chela DuganMRN: [id number]: 1955Procedure(s) (LRB):ARTHRODESIS ANT DISC PREP DISCECTOMY OSTEOPHYTECTOMY DECOMPRES SCORD/NERVE ROOT C' BELOW C2 (N/A)ARTHRODESIS ANT DISC PREP DISCECTOMY OSTEOPHYTECTOMY DECOM S CORD/NERVEROOTS C' BELOW C2 EACH + (N/A)INSERT SPINE FIXATION DEVICE ADDITIONAL PROCEDURE, 2-3 VERTEBRAL SEGMENTS(N/A)STRUCTURAL ALLOGRAFT FOR SPINE SURGERY (N/A)Surgeon(s):Sonia BarrosEstimated body mass index is 31.62 kg/m? as [...] and 2 every afternoonInpatient medications reviewed in [facility].I have interviewed and examined the patient. I have reviewed the medicalrecord and/or the pre-anesthesia evaluation, pertinent labs, and testresults.Significant changes in the patient's condition since the History andPhysical, not otherwise documented in primary service progress notes: NoTmanhattan surgical [facility] contains updated information obtained within 48 hours ofSurgery/Procedure.SIGNATURE: Rell Guajardo MD PATIENT NAME: Chela DuganDATE: December 19, 2017 : 10:52 AM PAGER/CONTACT #: Normal [facility] Confirm Blood Typeon 018 ABO/RH(D) Positive [facility] Comment on above: Performed By: #### C ONABO ####[facility] [place], [place] [phone] HISTORY PHYSICALon 8 HISTORY PHYSICAL HNO ID: [id number] thor: Sonia BarrosService: NeurosurgeryAuthor Type: PhysicianType: HANDPFiled: [...] December 19, 2017 : 11:27 AM PAGER: [facility] NURSING PROGon 12-19-2017 Protein mass conc HNO ID: [id number] thor: Angeles (Rn) Jorje, RNService: Vascular SurgeryAuthor Type: Registered NurseType: Nursing Progress NoteFiled: 12/19/2017 12:30 PMNote Text: Nursing Progress NotePatient Name: Chela DuganMRN: [id number] Location: [facility] OR POOL/[facility] OR POOL Daily Note: Pt's family was updated at 1230 on the status of surgery, viathe family paging system.This note was completed by: Angeles Recinos RN [facility] OPERATIVE NOon 12-19-2017 OPERATIVE NO HNO ID: [id number] thor: Sonia BarrosService: NeurosurgeryAuthor Type: PhysicianType: Operative ReportFiled: 12/20/2017 8:47 AMNote Text:[facility] - Operative ReportCHELA DUGAN ADOB: 1955 AGE: 62 SEX: MMRN: [id number] CSN: [id number] SVC: GENS LOCATION: [id number] PHYSICIAN: Sonia Barros M.D.DATE OF PROCEDURE: 12/19/2017PREOPERATIVE DIAGNOSIS: Cervical radiculopathy.POSTOPERATIVE DIAGNOSIS: Same.NAME OF OPERATION: Anterior cervical diskectomy and fusion at C5-6 andC6-7 with plate.SURGEON: Sonia Barros M.D.EMS MANAGER: Yas Roman (haylie).ANESTHESIA: General.ESTIMATED BLOOD LOSS: 50 cc.BACKGROUND NOTE: This [...] We put in the self-retainingretractor and brought [place] distraction post at C5 and C6. Wegently [...] forall critical aspects of the case.Sonia Barros M.D.NeurosurgeryJA:[id number]: 12/19/2017 15:07:36T: 12/20/2017 01:53:09Job #: [id number] [facility] PT EDon 12-19-2017 PT ED HNO ID: [id number] thor: Donita (Rn) KEVIN Monteervice: NursingAuthor Type: Registered NurseType: Patient EducationFiled: 12/19/2017 9:31 AMNote Text:PATIENT EDUCATION TOPIC: PROCEDURE / SURGERY: Pre-op Teaching:ProtocolsPATIENT NAME: Chela Sandoval Abiodun: [id number] LOCATION: OR POOL/FV OR POOLREADINESS TO LEARNCOGNITIVE ABILITY: Alert and orientedMOTIVATION TO LEARN: InterestedFAMILY SUPPORT: Unable to assess - Family not presentINSTRUCTION PROVIDED TO: PatientPATIENT LEARNS BEST BY: Individual InstructionFACTORS AFFECTING LEARNING: NonePHYSICAL LIMITATIONS AFFECTING LEARNING: NoneLEARNING RESPONSEDIAGNOSIS: ADULT: surgeryPATIENT/FAMILY RESPONSE: Verbalizes understanding of: RLI-JPDHNPMXUMKLDRXDHEURV-Usde ect action to take to follow pre-operative instructionsMETHOD OF INSTRUCTION: Individual instructionFOLLOW-UP PLAN: Complete - No need for follow-upINSTRUCTIONAL AIDS USED: NASUPPLEMENTAL MATERIAL PROVIDED TO PATIENT: NoneREFERRAL (RECOMMENDATION): NoneElectronically Signed By: Donita Monte RN [facility] XR CERVICAL 2V AP/LATon 12-08 Protein mass conc * * *Final Report* [...] HATHAWAY MD on Dec 19 2017 3:22PM [id number] [facility] XR CERVICAL SPECIFY 1Von Protein mass [...] at C5-6 anteriorly.IMPRESSION:Metallic pointer at the C5-6 anteriorly.Learning And Development Manager: DIMITRI Transcribe Date/Time: Dec 19 2017 1:54PDictated by : SAMANTHA BRISCOE MDThis examination was interpreted and the report reviewed and electronically signed by: SAMANTHA BRISCOE MD on Dec 19 2017 1:55PM [id number] [facility] NURSING PROGon 12-17-2017 Protein mass conc HNO ID: [id number] thor: Tito (Rn) Erick, RNService: (none)Author Type: Registered NurseType: Nursing Progress NoteFiled: [...] swab positive for staph. Patient contacted by [facility]-order formupirocin placed and patient given instructions for use.Pre-op Considerations:N/AChart Check:Barrett Suarez RNJuly 2017 12:01 PM [facility] Type and SCR (30D)on 018 ABO/RH(D) Positive [facility] Comment on above: Performed By: #### T SCR30 ####[facility] [place], [place] [phone] HOSPon 12-06-2017 HOSP Patient:Chela Dugan AMRN: Height:5' [...] 3.7HEMA* 44.7 % 12/09/2017 51.0 39.0Progress Notes (LATHA FRVW):Geraldine Blanco Psr 12/12/2017 11:06 AM SignedReceived fax from [employer], requesting medical records and request was faxed.[employer] also faxed Medical Certification form for disability leave.Placed fax/form in doctor nurse's folder.Diana Weller RN, RN 12/12/2017 2:55 PM SignedPlaced in RN paperwork to be completed file. Diana Weller RN, RN 12/12/2017 2:55 PM SignedFaxed signed forms along with office visit note, med list and surgical requestto [phone]. Receipt confirmation at 14:42 . Sent to be scanned into [employer].TREVOR Mccannrognisha Notes (PRE JAMEYS INGRIS):Camille Barrientos APRN.SUMMER ASSOCIATE 12/10/2017 11:34 AM AddendumHISTORY AND PHYSICAL EXAMINATIONSERVICE DATE: 12/09/2017SERVICE TIME: 9:36 AMPRIHAVASU REGIONAL MEDICAL CENTERY CARE PHYSICIAN: Vincenzo Mcgarry II, SARAEASON FOR VISIT:Chela Dugan is a 62 year [...] or fevers.Neuro: No history of TIA's, stroke, LAMP REPLACER tumor, impaired sensorium, hemiplegia,paraplegia or quadraplegia. No neurological symptoms or problems.Respiratory: No history of current cough or dyspnea, or pneumonia in the past 6weeks. No history of respiratory/pulmonary symptoms or problems., sinus problemsCardiovascular: No history of HTN requiring medication, no history of angina,CHF, OR, cardiac surgery or stents. Denies rest pain, [...] andcompliance.SIGNATURE: Camille Barrientos APRN.CNP PATIENT NAME: Chela GellerTE: December 09, 2017 : 9:12 AM PAGER/CONTACT #:Previous Jj Barrientos APRN.CNP 12/09/2017 9:45 AM SignedPATIENT PREOPERATIVE INSTRUCTIONSAmps, Sonia Daniels MD has scheduled you for your procedure at this surgery center:[facility]: [phone] -[phone] [place] [address].Please check in on the 1st floor at [...] surgery.- NO jewelry, body piercings, makeup, nail [place], hairpins or contacts are anjelica worn the day of surgery.- Hibiclens shower.- CHG wipes provided with instructions.If you develop symptoms such as a fever, cold, or flu, or have other changes [facility] health within TWO DAYS of scheduled surgery or the morning of surgery,please contact the surgery center above.Personal Belongings:- Leave ALL valuables and money at home or with family members.For Outpatient Procedures: - YOU MUST HAVE A RESPONSIBLE BILLET BED OPERATOR TAKE YOU HOME. A MARKETING PROPOSAL COORDINATOR OR CAB DRIVERCANNOT BE MADE A RESPONSIBLE BILLET BED OPERATOR.- We recommend that a responsible person stays [...] stated understanding. Rx sent to Bret Barrientos APRN.CNPJuly 2017 11:38 AM Normal [facility] Vital Signs Date Time Vital Sign Value Performing Clinician Facility 07-06-2024 10:30-0500 Body height 167.6 cm Vincenzo Mcgarry MD Work Phone: [facility] 07-06-2024 10:30-0500 Body mass index (BMI) [Ratio] 34.7 kg/m2 Vincenzo Mcgarry MD Work Phone: [facility] 07-06-2024 10:30-0500 Body weight 97.52 kg Vincenzo Mcgarry MD Work Phone: [facility] 07-06-2024 10:30-0500 Diastolic blood pressure 72 mm[Hg] Vincenzo Mcgarry MD Work Phone: [facility] 07-06-2024 10:30-0500 Heart rate 74 /min Vincenzo Mcgarry MD Work Phone: [facility] 07-06-2024 10:30-0500 SaO2% (BldA) [Mass fraction] 95 % Vincenzo Mcgarry MD Work Phone: [facility] 07-06-2024 10:30-0500 Systolic blood pressure 130 mm[Hg] Vincenzo Mcgarry MD Work Phone: [facility] 08-03-2022 10:09-0500 Body height 167.64 cm Jace Lindsey MD Work Phone: IZ-Avahibblopxdol-Hm [address] Work Phone: 08-03-2022 10:09-0500 Body mass index (BMI) [Ratio] 33.78 kg/m2 Jace Lindsey MD Work Phone: RR-Nmmtxsxizseear-Pp [address] Work Phone: 08-03-2022 10:09-0500 Body surface area Derived from formula 2.04 m2 Jace Lindsey MD Work Phone: UM-Mcbpijsxjyqlym-Eo [address] Work Phone: 08-03-2022 10:09-0500 Body weight 94.94 kg Jace Lindsey MD Work Phone: QR-Oukulruhzzigql-Yh [address] Work Phone: 07-06-2022 10:54-0500 Body height 167.64 cm Jace Lindsey MD Work Phone: PQ-Ggwmlakoezagid-He [address] Work Phone: 07-06-2022 10:54-0500 Body mass index (BMI) [Ratio] 33.79 kg/m2 Jace Lindsey MD Work Phone: FL-Nfigfpohorciow-Xh [address] Work Phone: 07-06-2022 10:54-0500 Body surface area Derived from formula 2.04 m2 Jace Lindsey MD Work Phone: HL-Zuvcqherfxcswf-Br [address] Work Phone: 07-06-2022 10:54-0500 Body weight 94.97 kg Jace Lindsey MD Work Phone: HB-Loceatjwuequbj-Fn [address] Work Phone: 07-06-2022 10:54-0500 0 1 Jace Lindsey MD Work Phone: PG-Manjxgjwlpkjlh-Jf [address] Work Phone: Comment on above: [employer] 12-12-2021 18:10-0400 Body height 164.47 cm Lavonne Chelsea Other [employer] Other 12-12-2021 18:10-0400 Body mass index (BMI) [Ratio] 32.86 kg/m2 Lavonne Tran Other [employer] Other 12-12-2021 18:10-0400 Body temperature 97.7 [degF] Lavonne Tran Other [employer] Other 12-12-2021 18:10-0400 Body weight 88.91 kg Lavonne Chelsea Other [employer] Other 12-12-2021 18:10-0400 Diastolic blood pressure 79 mm[Hg] Lavonne Tran Other [employer] Other 12-12-2021 18:10-0400 Respiratory rate 18 /min Lavonne Tran Other [employer] Other 12-12-2021 18:10-0400 SaO2% (BldA) [Mass fraction] 98 % Lavonne Tran Other [employer] Other 12-12-2021 18:10-0400 Systolic blood pressure 115 mm[Hg] Lavonne Tran Other [employer] Other Encounters Encounter Date Encounter Type Care Provider Facility Start: 07-06-2024 End: 07-06-2024 Bamboo flowsheet Vincenzo Mcgarry MD Work Phone: [facility] Start: 07-06-2024 End: 07-06-2024 Bamboo flowsheet Vincenzo Mcgarry MD Work Phone: [facility] Start: 07-06-2024 End: 07-06-2024 Assay of hemosiderin, quant Vincenzo Mcgarry MD Work Phone: [facility] Start: 07-06-2024 End: 07-06-2024 Patient encounter procedure Vincenzo Mcgarry MD Work Phone: [facility] Comment on above: Routine general medi nova examination at health care facility (Primary Dx); ACP (advance care planning); Impaired glucose tolerance; Mixed hyperlipidemia (CMS/HCC); Prostate cancer screening; Acute non-recurrent sinusitis, unspecified location Start: 07-06-2024 End: 07-06-2024 ambulatory VINCENZO MCGARRY Not Available Start: 09-09-2023 End: 09-09-2023 ambulatory VINCENZO MCGARRY Not Available Start: 08-03-2022 Postop follow up vis it related to original px Jace Lindsey MD Work Phone: NX-Uxooqegkzlbrnt-Nlwj n 395 Work Phone: Start: 08-03-2022 ambulatory Jace Lindsey Facility: [id number] Start: 07-27-2022 End: 07-27-2022 ambulatory Vincenzo Mcgarry II Facility:[facility] Start: 07-06-2022 Office consultation new/estab patient 60 min Jace Lindsey MD Work Phone: ZE-Fxmgmmbjsraqir-Wgzs n 395 Work Phone: Start: 07-06-2022 ambulatory Vincenzo Mcgarry II Facility:[id number] Start: 06-07-2022 End: 06-08-2022 ambulatory Chariot Callahan Facility:[facility] Start: 03-28-2022 End: 03-29-[address] VINCENZO MCGARRY Facility: Start: 12-12-2021 End: 12-12-2021 ambulatory Lavonne Tran Other [employer] Other Start: 12-12-2021 Office outpatient vi sit 15 minutes Lavonne Tran [facility] Start: 05-30-2021 ([facility] C Vac) [facility] Co vid Vaccine Lory Faustin [facility] Start: 05-30-2021 End: 05-30-2021 ambulatory Lory Faustin Other [employer] Other Start: 05-02-2018 End: 05-03-2018 Patient encounter procedure [facility] Start: 01-31-2018 End: 01-31-2018 Emergency department patient visit VINCENZOPOP MCGARRY [facility] Start: 12-19-2017 End: 12-20-2017 Patient encounter procedure SONIA BARROS [facility] Procedures Date Procedure Procedure Detail Performing Clinician Start: 05-10-2021 Colonoscopy Vincenzo friend MD Work Phone: Start: 01-31-2018 Ct cervical spine w/ o contrast material VINCENZO MCGARRY Start: 12-09-2017 Antibody screen SONAI BARROS Comment on above: Performed By: #### T [id number] ####[facility] [place], [place] [phone] Procedure on neck Jace lora MD Work Phone: Plan of Treatment Date Care Activity Detail Author Start: 05-10-2031 Screening for malign ant neoplasm of colon [facility] Start: 07-06-2025 Medicare Annual Wellness (AWV) Medicare Annual Wellness (AWV) [facility] Start: 03-28-2025 Pneumococcal Vaccine : 65+ Years (3 of 3 - PPSV23 or PCV20) Pneumococcal Vaccine: 65+ Years (3 of 3 - PPSV23 or PCV20) [facility] Start: 07-06-2024 End: 07-06-2025 Comprehensive metabolic 2000 panel - Serum or Plasma Comprehensive metabolic panel Lab Routine Impaired glucose tolerance Mixed hyperlipidemia (CMS/HCC) Expected: 07/06/2024 (Approximate), Expires: 07/06/2025 [facility] Comment on above: Expected: 07/06/2024 (Approximate), Expires: 07/06/2025 Start: 07-06-2024 End: 07-06-2025 Hemoglobin A1c/Hemoglobin.total in Blood Hemoglobin A1c Lab Routine Impaired glucose tolerance Expected: 07/06/2024 (Approximate), Expires: 07/06/2025 [facility] Comment on above: Expected: 07/06/2024 (Approximate), Expires: 07/06/2025 Start: 07-06-2024 End: 07-06-2025 Lipid 1996 panel - Serum or Plasma Lipid panel Lab Routine Impaired glucose tolerance Mixed hyperlipidemia (CMS/HCC) Expected: 07/06/2024 (Approximate), Expires: 07/06/2025 [facility] Comment on above: Expected: 07/06/2024 (Approximate), Expires: 07/06/2025 Start: 07-06-2024 End: 07-06-2024 Patient encounter procedure 07/06/2024 10:45 AM EST Office Visit [facility] [address] [facility] [address] [place] [address] Vincenzo Mcgarry MD [address] [facility] [address] [place] [address] Arrived [facility] Comment on above: Arrived Start: 07-03-2024 Medicare Annual Wellness (AWV) Medicare Annual Wellness (AWV) [facility] Start: 1955 Screening for malign ant neoplasm of colon [facility] Prostate specific Ag [Mass/volume] in Serum or Plasma PSA Lab Routine Prostate cancer screening Ordered: 07/06/2024 [facility] Work Phone: Comment on above: Ordered: 07/06/2024 Immunizations Immunization Date Immunization Notes Care Provider Wendi tom 05-05-2024 influenza, high dose seasonal, preservative-free Vincenzo Mcgarry MD Work Phone: [facility] 04-13-2023 Influenza, High-dose Seasonal, Quadrivalent, Preservative Free Vincenzo Mcgarry MD Work Phone: [facility] 04-12-2022 zoster vaccine recombinant Vincenzo Mcgarry MD Work Phone: [facility] 04-11-2022 tetanus toxoid, redu se diphtheria toxoid, and acellular pertussis vaccine, adsorbed Vincenzo Mcgarry MD Work Phone: [facility] 03-28-2022 Influenza, High-dose Seasonal, Quadrivalent, Preservative Free Vincenzo Mcgarry MD Work Phone: [facility] 05-30-2021 COVID-19 Pfizer Lory Fitt Other [employer] Other 04-10-2021 influenza, high dose seasonal, preservative-free Vincenzo Mcgarry MD Work Phone: [facility] 09-09-2020 Pfizer Purple Cap SARS-CoV-2 Vaccination Vincenzo Mcgarry MD Work Phone: [facility] 08-11-2020 Pfizer Purple Cap SARS-CoV-2 Vaccination Vincenzo Mcgarry MD Work Phone: [facility] 03-28-2020 influenza, injectabl e, quadrivalent, preservative free Vincenzo Mcgarry MD Work Phone: [facility] 03-28-2020 pneumococcal conjuga te vaccine, 13 valent Vincenzo Mcgarry MD Work Phone: [facility] 07-07-2019 tetanus toxoid, redu se diphtheria toxoid, and acellular pertussis vaccine, adsorbed Vincenzo Mcgarry MD Work Phone: [facility] 07-07-2019 zoster vaccine recombinant Vincenzo Mcgarry MD Work Phone: [facility] 03-31-2019 influenza, injectabl e, quadrivalent, preservative free Vincenzo Mcgarry MD Work Phone: [facility] 03-31-2019 zoster vaccine recombinant Vicnenzo Mcgarry MD Work Phone: [facility] 03-17-2018 seasonal influenza, intradermal, preservative free Vincenzo Mcgarry MD Work Phone: [facility] 04-11-2017 seasonal influenza, intradermal, preservative free Vincenzo Mcgarry MD Work Phone: [facility] 04-10-2016 influenza, injectabl e, quadrivalent, contains preservative Vincenzo Mcgarry MD Work Phone: [facility] 02-24-2013 pneumococcal polysaccharide vaccine, 23 valent Vincenzo Mcgarry MD Work Phone: [facility] 02-24-2013 seasonal influenza, intradermal, preservative free Vincenzo Mcgarry MD Work Phone: [facility] Payers Date Payer Category Payer Private Health Insurance [employer] V A CCN [id number] 2022 Unknown [id number] 2021 Medicare (Managed Care) LUZ OLIVEIRA [id number] 2021 Medicare [id number] 2018 Unknown [id number] 1959 Medicare [id number] 1955 Unknown [id number] 1955 Unknown [id number] 1955 Unknown [id number] 1955 Unknown [id number] 1955 Unknown [id number] 1955 Unknown [id number] 1955 Unknown [id number] Unknown Social History Date Type Detail Facility Unknown if ever smoked [employer] Other Start: 09-09-2023 End: 07-06-2024 Sex Assigned At [employer] Other Start: 09-09-2023 End: 07-06-2024 Non-smoker Non-smoker [id number] Work Phone: Start: 12-09-2022 End: 07-06-2024 Tobacco smoking status NHIS Never smoked tobacco [facility] Start: 09-09-2023 End: 07-06-2024 Alcoholic beverage intake Current drinker of alcohol (finding) [facility] Start: 12-09-2022 Alcohol Comment Less than brodie hly. Coffee,soda 1-2 cups per day [facility] Start: 1955 Sex assigned at Not on file [facility] Start: 07-06-2024 Tobacco use and exposure Smokeless tobacco non-user [facility] History of Present illness Narrative 07-06-2024 Vincenzo Mcgarry MD - 07/06/2024 10:45 AM EST Note Date & Type Note Facility 07-06-2024 History of Presen t illness Narrative Images from the original note were not included. HPI URI Additional comments: Cold started 3-4 days ago- cough and sneezing Rash Additional comments: Rash started couple months ago with no improvement on both forearms, both lower legs and feet tried using abx cream but did not help Last edited by Ghislaine Morton LPN on 07/06/2024 10:41 AM. Subjective : Chief Complaint: Chela Dugan is an 69 y.o. male here for an annual wellness visit. I have reviewed and reconciled the history and medication list with the patient today. Current Outpatient Medications Medication Sig Dispense Refill cholecalciferol (Vitamin D-3) 10 MCG (400 UNIT) tablet Take 400 Units by mouth in the morning. omega-3 (FISH OIL) 300 MG capsule Fish Oil cefdinir (Omnicef) 300 MG capsule Take 1 capsule (300 mg) by mouth in the morning and 1 capsule (300 mg) before bedtime. Do all this for 7 days. 14 capsule 0 No current facility-administered medications for this visit. Review of Systems List of current healthcare providers: Patient Care Team: Vincenzo Mcgarry MD as PCP - General (Internal Medicine) Vincenzo Mcgarry MD as PCP - Luz GREGORY Medicare Annual Visit Over the past 2 weeks, how often have you been bothered by any of the following problems? Little interest or pleasure in doing things: Not at all Feeling down, depressed, or hopeless: Not at all Patient Health Questionnaire-2 Score: 0 Tyler Fall Risk History of Falling, Immediate or Within 3 Months: No Secondary Diagnosis: No Ambulatory Aid: Walks without aid/bedrest/nurse assist Health Risk Assessment Form Do you need help eating, bathing, using the toilet, dressing, or getting around your home?: No Can you prepare your own meals?: Yes Can you do your own housework without help?: Yes Can you shop for groceries or clothes without help?: Yes Do you exercise for about 20 minutes 3 or more days a week?: Yes How confident are you that you can control and manage most of your health problems?: Very confident Can you mange your money, credit cards and accounts, pay bills and taxes?: Yes Cognitive Screening Three Word Registration: Apple, Watch, Shilpa Clock Drawing: Normal Clock - 2 Three Word Recall: 2/3 words correct - 2 Total Score (0-5 Points): 4 Pain Assessment Pain Score: 2 Advance Care Planning Do you have a living will?: Yes Do you have a medical power of pest control applicator?: Yes Who is your medical power of pest control applicator?: sarai Objective : BP 130/72 Pulse 74 Ht 5' 6 Wt 215 lb SpO2 95% BMI 34.70 kg/m No results found. Physical Exam Constitutional: General: He is not in acute distress. Appearance: He is normal weight. He is not ill-appearing. HENT: Head: Normocephalic. Nose: Congestion present. Mouth/Throat: Pharynx: Oropharyngeal exudate and posterior oropharyngeal erythema present. Cardiovascular: Rate and Rhythm: Normal rate and regular rhythm. Heart sounds: Normal heart sounds. No murmur heard. Pulmonary: Effort: Pulmonary effort is normal. Breath sounds: Normal breath sounds. Musculoskeletal: General: No swelling. Right lower leg: No edema. Left lower leg: No edema. Neurological: Mental Status: He is alert. Psychiatric: Mood and Affect: Mood normal. Thought Content: Thought content normal. Judgment: Judgment normal. Assessment/Plan : The following health maintenance schedule was reviewed with the patient and provided in printed form in the after visit summary: Health Maintenance Topic Date Due Medicare Annual Wellness (AWV) 07/03/2024 Pneumococcal Vaccine: 65+ Years (3 of 3 - PPSV23 or PCV20) 03/28/2025 Colorectal Cancer Screening 05/10/2031 Influenza Vaccine Completed Advance Care Planning Assessment/Plan Diagnoses and all orders for this visit: Routine general medical examination at health care facility ACP (advance care planning) Impaired glucose tolerance - Comprehensive metabolic panel; Future - Lipid panel; Future - Hemoglobin A1c; Future Mixed hyperlipidemia (CMS/HCC) - Comprehensive metabolic panel; Future - Lipid panel; Future Prostate cancer screening - PSA Acute non-recurrent sinusitis, unspecified location - cefdinir (Omnicef) 300 MG capsule; Take 1 capsule (300 mg) by mouth in the morning and 1 capsule (300 mg) before bedtime. Do all this for 7 days. Orders Placed This Encounter Procedures PSA Order Specific Question: Print requisition? Answer: No Comprehensive metabolic panel Standing Status: Future Number of Occurrences: 1 Standing Expiration Date: 07/06/2025 Order Specific Question: Print requisition? Answer: No Lipid panel Standing Status: Future Number of Occurrences: 1 Standing Expiration Date: 07/06/2025 Hemoglobin A1c Standing Status: Future Number of Occurrences: 1 Standing Expiration Date: 07/06/2025 Order Specific Question: Print requisition? Answer: No Follow up in about 6 months (around 01/03/2025) for Routine F/U. Electronically signed by Vincenzo Mcgarry MD on July 06, 2024 documented in this encounter [facility] History of Present illness Narrative 08-03-2022 Note Date & Type Note Facility 08-03-2022 History of Present illness Narrative doing well. here for splint removalnasal splints removednasal swelling expectedseptum midlinenasal airway patent blcontinue saline sprays and vaseline ointment to naresRTC 4-6 months or prn if doing well [id number] Work Phone: Clinical Note 07-27-2022 Note Date & Type Note Facility 07-27-2022 Note PROCEDURE DETAILS Preoperative Diagnosis: Septal deviation Nasal obstruction Inferior turbinate hypertrophy Nasoseptal deformity Postoperative Diagnosis: same Surgeon: César Resident/Fellow/Other Poultry Vaccinator: Tranchito Procedure: 1. Revision septorhinoplasty 2. Bilateral [...] reduction and lateralization was then performed. A [employer] fine needle tip bovie electrocautery was used to perform intramural cauterization for submucous resection bilaterally. A [place] elevator was then used to outfracture the [...] Last Updated: 27-Jul-2022 16:40 by Jace Lindsey) [facility] Clinical Note 07-27-2022 Note Date & Type [...] the note. I personally evaluated the patient [id number] Electronic Signatures: Jace Lindsey) (Signed 27-Jul-2022 07:59) Authored: Note Completion Co-Signer: History & Physical Reviewed, ERAS, Consent, Note Completion Sandie Pierson (Resident)) (Signed 27-Jul-2022 05:58) Authored: History & Physical Reviewed, ERAS, Consent, Note Completion Last Updated: 27-Jul-2022 07:59 by Jace Lindsey) [facility] Evaluation note 07-05-2022 Note Date & Type Note Facility 12-12-2021 [...] will help you get into a specialist. [employer] Other Evaluation note 05-30-2021 Note Date & Type Note Facility 05-30-2021 Evaluation note Encounter Date Diagnosis Assessment Notes May, Encounter for immunization (ICD-10 - Z23) Patient presents for COVID-19 vaccination BOOSTER. Pre-screening form answers evaluated with patient. Patient denies current illness or allergic reaction to component of COVID-19 vaccine. Patient provided with current copy of EUA. [employer] Other Evaluation note Note Date & Type Note Facility Evaluation note Diagnosis Routine general medical examination at health care facility- Primary Routine general medical examination at a health care facility ACP (advance care planning) Other specified counseling Impaired glucose tolerance Impaired glucose tolerance test Mixed hyperlipidemia ([facility]) Mixed hyperlipidemia Prostate cancer screening Special screening for malignant neoplasm of prostate Acute non-recurrent sinusitis, unspecified location documented in this encounter [facility] History general Narrative - Reported Note Date & Type Note Facility History general Narrative - Reported Type Medical History allergies Surgical History hand surgery Surgical History nasal surgery Surgical History cholecystectomy Hospitalization History See past surgical hx [employer] Other History of Present illness Narrative Note [...] changes presentNasopharynx: Clear, no discharge, no masses/lesionsModified Conrad Maneuver: Performed with a cotton tipped applicator, markedly improves breathing bilaterally. [id number]-[id number] [facility] Work Phone: Summary Purpose Family History No [...] Records Found Hospital Course Note HNO ID: [id number]: Mitali Mattson) O EvanService: NeurosurgeryAuthor Type: Physician AssistantType: Discharge SummariesFiled: 12/22/2017 11:14 AMNote Text:DISCHARGE SUMMARYPATIENT NAME: Chela Dugan ADMISSION DATE: 12/19/2017MRN: [id number] DISCHARGE DATE: 12/20/2017ATTENDING PHYSICIAN: Sonia Chavez FOR [...] (more content not included)... Note HNO ID: [id number]: Triston Barkervice: NeurosurgeryAuthor Type: PhysicianType: Brief Op NoteFiled: 12/19/2017 3:00 PMNote Text:BRIEF OPERATIVE / PROCEDURE NOTELOG ID: [id number]/PROCEDURE DATE: 12/19/2017INCISION/PROCEDURE START TIME: 12:29 PMINCISION CLOSE/PROCEDURE END TIME: 2:47 PMSURGEON(S)/PROCEDURALIST(S) AND EMS MANAGER(S):Surgeon(s) and Role: * Sonia Barros - PrimaryPhysician Poultry Vaccinator: Yas Gordon (Pa)SURGERY/PROCEDURE(S): C5-6, 6-7 ACDF with plateANESTHESIA: GeneralFINDINGS: tight stenosisESTIMATED BLOOD LOSS: 50 mlsSPECIMENS: NoneCOMPLICATIONS: NonePRE-OP/PRE-PROCEDURE DIAGNOSIS: cervical radiculopathyPOST-OP/POST-PROCEDURE DIAGNOSIS: sameSIGNATURE: Sonia Barros MD PATIENT NAME: Chela DuganDATE: December 19, 2017 : 2:59 PM PAGER/CONTACT #: Procedure Findings Note HNO ID: [id number]: Triston Barkervice: NeurosurgeryAuthor Type: PhysicianType: Brief Op NoteFiled: 12/19/2017 3:00 PMNote Text:BRIEF OPERATIVE / PROCEDURE NOTELOG ID: [id number]/PROCEDURE DATE: 12/19/2017INCISION/PROCEDURE START TIME: 12:29 PMINCISION CLOSE/PROCEDURE END TIME: 2:47 PMSURGEON(S)/PROCEDURALIST(S) AND EMS MANAGER(S):Surgeon(s) and Role: * Sonia Barros - PrimaryPhysician Poultry Vaccinator: Yas Gordon (Pa)SURGERY/PROCEDURE(S): C5-6, 6-7 ACDF with plateANESTHESIA: GeneralFINDINGS: tight stenosisESTIMATED BLOOD LOSS: 50 mlsSPECIMENS: NoneCOMPLICATIONS: NonePRE-OP/PRE-PROCEDURE DIAGNOSIS: cervical radiculopathyPOST-OP/POST-PROCEDURE DIAGNOSIS: sameSIGNATURE: Sonia Barros MD PATIENT NAME: Chela DuganDATE: December 19, 2017 : 2:59 PM PAGER/CONTACT [...] and content) DATE CREATED AUTHOR 02/09/2018 [facility] DATE CREATED AUTHOR AUTHOR'S ORGANIZ ATION 05/20/2018 [facility] DATE CREATED AUTHOR AUTHOR'S ORGANIZ ATION 12/27/2021 [facility] DATE CREATED AUTHOR AUTHOR'S ORGANIZ ATION 04/03/2022 [facility] DATE CREATED AUTHOR AUTHOR'S ORGANIZ ATION 04/13/2022 [facility] dical Specialist DATE CREATED AUTHOR AUTHOR'S ORGANIZ ATION 06/08/2022 [facility] DATE CREATED AUTHOR AUTHOR'S ORGANIZ ATION 08/03/2022 [facility] DATE CREATED AUTHOR AUTHOR'S ORGANIZ ATION 08/04/2022 [employer] DATE CREATED AUTHOR AUTHOR'S ORGANIZ ATION 07/06/2024 [facility] dical Specialists EPIC DATE CREATED AUTHOR AUTHOR'S ORGANIZ ATION 07/12/2024 [facility] REASON FOR VISIT (unrecogniz ed section and content) Reason Comments Medicare Annual Wellness Visit Subsequen t URI Cold started 3-4 day s ago- cough and sneezing Rash Rash started couple months ago with no improvement on both forearms, both lower legs and feet tried using abx cream but did not help Care Teams (unrecognized sec tion and content) Dip Lube Operator Relationship Specialty Start Date End Date Vincenzo Mcgarry MD [address] [facility] [address] [place] [address] PCP - Luz GREGORY 06/10/21 Vincenzo Mcgarry MD [address] [facility] [address] [place] [address] PCP - General Internal Medicine 10/19/22 Dip Lube Operator Relationship Specialty Start Date End Date Vincenzo Mcgarry MD [address] [facility] [address] [place] [address] PCP - Luz GREGORY 06/10/21 Vincenzo Mcgarry MD [address] [facility] [address] [place] [address] PCP - General Internal Medicine 10/19/22 FOR RECORDS PERTAINING TO PATIENTS WHO ARE [...] BE BASED ON THE PRIMARY CLINICAL RECORDS. [employer] provides no warranty or guarantee of the accuracy or completeness of information in this document.
--- NOTE | 2024-08-18 21:38 | ECG_ITS ---
[facility] Test Date: 2024-08-18 Pat Name: CHELA DUGAN Department: Room: - Gender: Male Emergency Medical Tech: : [id number] Requested By: [id number] Order Number: [id number] Reading MD: MELONY LOW M.D. Measurements Intervals [place] Rate: 71 P: 44 MI: 178 QRS: 32 QRSD: 100 T: 33 QT: 414 QTc: 436 Interpretive Statements 1100 Sinus rhythm 9110 normal ECG Compared to ECG 01/30/2020 23:10:13 No significant changes Electronically Signed On 08-19-2024 9:28:38 EDT by MELONY LOW M.D.
[2024-08-18 21:52] LABS: Hematocrit 46.8 % (42.0-54.0); Hemoglobin 15.4 g/dL (14.0-18.0); Mean Corpuscular HGB Conc 32.9 g/dL (29.9-35.2); Mean Corpuscular Hemoglobin 29.8 pg (25.9-34.0); Mean Corpuscular Volume 90.5 fL (80.0-94.0); Mean Platelet Volume 10.3 fL (9.5-13.5); Platelet Count 311 10^3/uL (150-450); Red Blood Count 5.17 10^6/uL (4.70-6.10); Red Cell Distribution Width 13.6 % (11.0-15.0)
[2024-08-18] MEDS: ONDANSETRON PF 4 MG/2 ML VIAL IV ×2 (21:57→22:34)
[2024-08-18] MEDS: DIAZEPAM 10 MG/2 ML SYRINGE 5 MG IV (21:57)
[2024-08-18] MEDS: 0.9 % SODIUM CHLORIDE 1,000 ML 1000 ML IV (21:58)
[2024-08-18 22:04] LABS: Anion Gap 15.2
[2024-08-18 22:08] LABS: Alanine Aminotransferase 31 U/L (16-63); Albumin Level 3.9 g/dL (3.4-5.0); Alkaline Phosphatase 109 U/L (46-116); Aspartate Amino Transferase 24 U/L (15-37); BUN Creatinine Ratio 12.1; Bilirubin Total 0.3 mg/dL (0.2-1.0); Calcium 9.3 mg/dL (8.5-10.1); Carbon Dioxide 27.1 mmol/L (21.0-32.0); Chloride 102 mmol/L (98-107); Estimated GFR (African America >60 (>=60 mL/min/1.73m^2); Estimated GFR (Non-African Ame 58 (>=60 mL/min/1.73m^2); Glucose 141 mg/dL (74-106); Potassium 3.3 mmol/L (3.5-5.1); Sodium 141 mmol/L (136-145); Total Protein 7.9 g/dL (6.4-8.2); Troponin I High Sensitivity 4.7 pg/mL (4.0-76.1)
[2024-08-18 22:10] LABS: Atypical Lymphocytes Abs Man 0.56; Eosinophils Absolute Manual 0.98 10^3/uL (0.00-0.70); Lymphocytes Absolute Manual 4.06 10^3/uL (1.20-3.80); Monocytes Absolute Manual 2.38 10^3/uL (0.30-0.80); Segmented Neut Absolute Manual 6.02 10^3/uL (1.4-6.5)
[2024-08-18 22:11] LABS: Toxic Granulation 2+
--- NOTE | 2024-08-18 23:44 | ED_ITS ---
HPI HPI - General Adult General Chief complaint: Dizziness Stated complaint: nausea, vomiting, dizzy Time Seen by Provider: 08/18/24 21:14 Source: patient and family Mode of arrival: Wheelchair Limitations: no limitations History of Present Illness HPI narrative: The gentleman is an extremely pleasant 69-year-old gentleman who presents to the emergency department for dizziness. The patient is healthy and does not take any medications per his who brought him to the emergency department through triage. Approximately 2 hours prior to arrival, the patient was in the shower. He had gotten out and then had an acute onset of rotational vertigo. He states the room is spinning. He has intense nausea and vomiting that is nonbloody and nonbilious. Patient is unable to ambulate with a stable upright gait he just really does not want to move. This episode was not preceded by any head injury. He does not have any history of previous strokes. He does not have high blood pressure, high cholesterol, or diabetes although there is a family medical history of those in the family. The patient had an uneventful day. He has not had any recent COVID diagnoses. He has not had any tinnitus, hearing loss or otalgia. Patient's been eating and drinking appropriately. He has no diarrhea. He has no fever or chills. No sick contacts or recent travel. He does not have any trouble speaking or communicating. No trouble swallowing. No lateralizing weakness. stated walking is very difficult for him because of the dizziness and then he starts to vomit even more. Related Data Previous Rx's ?Medication ?Instructions ?Recorded diazepam 5 mg tablet (Valium) 5 mg PO Q8H PRN vertigo #14 tabs 08/19/24 ondansetron 4 mg disintegrating 4 mg PO Q6H PRN nausea and 08/19/24 tablet vomiting #14 tabs Allergies Allergy/AdvReac Type Severity Reaction Status Date / Time diphenhydramine (From Allergy Severe Swelling Verified 08/18/24 21:19 Benadryl) of Lip/Tongue/Throat NSAIDS (Non-Steroidal Allergy Severe Swelling Verified 08/18/24 21:19 Anti-Inflamma of Lip/Tongue/Throat Opioid HPI Opioid Management Most Recent Opioid Data: No Data to Display Review of Systems ROS Narrative 10 Systems were reviewed, and unless not ed in the HPI, all other systems are reviewed, unremarkable, or noncontributory. 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 Prior to touching the patient, I asked for consent to examine the patient.? General: Alert and oriented, well nourished, moderate distress and actively vomiting. Patient is diaphoretic Eye: PERRL, EOMI, normal conjunctiva. 5 mm and reactive. 4 beat right sided beating nystagmus. No vertical nystagmus. HENT: Normocephalic, normal hearing, moist oral mucosa, no scleral icterus, tympanic membranes are not red, dull, bulging. No nasal turbinate edema. No posterior oropharyngeal erythema, edema, or exudate. Neck: Supple, non-tender, no carotid bruits, no JVD, no lymphadenopathy. No midline neck tenderness. Lungs: Clear to auscultation and percussion, non-labored respiration. No rhonchi, rales, wheezing. Heart: Normal rate, regular rhythm, no murmur, gallop or edema. Abdomen: Soft, non-tender, non-distended, normal bowel sounds, no masses. Musculoskeletal: Normal range of motion and strength, no tenderness or swelling. Skin: Skin is warm, dry and pink, no rashes or lesions. Neurologic: Awake, alert, and oriented X3, CN II-XII intact. NIH stroke scale is 0. Specifically cerebellar testing of the upper and lower extremities were completely normal. Psychiatric: Cooperative, appropriate mood and affect.? Following the conclusion of the examination, I have washed my hands thoroughly after removing examination gloves. Constitutional Vital Signs, click to edit/add: Last Vital Signs Temp 98.2 F 08/18/24 21:19 Pulse 46 L 08/19/24 00:30 Resp 16 08/19/24 00:30 BP 143/75 H 08/19/24 00:30 Pulse Ox 94 L 08/19/24 00:30 O2 Del Method Room Air 08/18/24 21:19 Course Course Hospital Course: Patient is a very pleasant 69-year-old gentleman who presents to the emergency department with nausea, vomiting, and rotational vertigo. Patient was unable to ambulate due to the unsteadiness. Patient had an IV established. He received 2 doses of Zofran 4 mg IV push, 1 L normal saline bolus and Valium 5 mg IV push. Patient then had control of his nausea and felt much better. He did well with a p.o. challenge and ambulatory trial. I am uncertain as to the etiology whether patient would suddenly to have developed vertigo but I did explain to the that this may come and go over the next several weeks and may never occur again. She is also aware the dizziness can be a symptoms of a posterior cerebellar stroke. The patient does not have any persistent or worsening vertigo. His disequilibrium has resolved. He does not have a headache. There is no vertical movement. He does not have any diplopia. No dysarthria, no ataxia, or no further cerebellar signs. Reevaluation(s) Reevaluation #1: Patient is feeling much better at this time. We are going to try a p.o. challenge and an ambulatory trial to determine disposition. Time: 00:11 Vital Signs Vital signs: Vital Signs Temperature 98.2 F 08/18/24 21:19 Pulse Rate 110 H 08/18/24 21:19 Respiratory Rate 18 08/18/24 21:19 Blood Pressure 152/97 H 08/18/24 21:19 Pulse Oximetry 96 08/18/24 21:19 Oxygen Delivery Method Room Air 08/18/24 21:19 Temperature 98.2 F 08/18/24 21:19 Pulse Rate 46 L 08/19/24 00:30 Respiratory Rate 16 08/19/24 00:30 Blood Pressure 143/75 H 08/19/24 00:30 Pulse Oximetry 94 L 08/19/24 00:30 Oxygen Delivery Method Room Air 08/18/24 21:19 Medical Decision Making MDM Narrative Medical decision making narrative: Patient's symptoms have completely resolved. A did get a CAT scan of the patient's head as well as blood work and everything appears to be unremarkable. His examination posttreatment is very reassuring. Differential Diagnosis Differential Diagnosis: Posterior cerebellar stroke, vertigo, otitis media, foreign body in the ear Medical Records Medical records reviewed: Yes I reviewed the patient's medical records Lab Data Lab results reviewed: Yes I reviewed the patient's lab results Lab results narrative: CBC reveals leukocytosis which may be from stress demargination from vomiting. Hemoglobin and hematocrit are normal. Counts. Comprehensive metabolic panel reveals no significant electrolyte derangements although his potassium is 3.3 likely from hyperventilating and vomiting. No evidence of renal dysfunction or liver function test normal. Troponin and within normal limits. Labs: Lab Results 08/18/24 08/19/24 Range/Units 21:25 00:00 WBC 14.0 H (4.0-11.0) 10^3/uL RBC 5.17 (4.70-6.10) 10^6/uL Hgb 15.4 (14.0-18.0) g/dL Hct 46.8 (42.0-54.0) % MCV 90.5 (80.0-94.0) fL MCH 29.8 (25.9-34.0) pg MCHC 32.9 (29.9-35.2) g/dL RDW 13.6 (11.0-15.0) % Plt Count 311 (150-450) 10^3/uL MPV 10.3 (9.5-13.5) fL Seg Neuts % (Manual) 43.0 (43.0-75.0) Lymphocytes % (Manual) 29.0 (20.5-60.0) % Atypical Lymphs % (Man) 4.0 % Monocytes % (Manual) 17.0 H (1.7-12.0) % Eosinophils % (Manual) 7.0 (0.9-7.0) % Basophils % (Manual) 0.0 L (0.2-2.0) % Neutrophils # (Manual) 6.02 (1.4-6.5) 10^3/uL Lymphocytes # (Manual) 4.06 H (1.20-3.80) 10^3/uL Abs Atypical Lymphs Man 0.56 Monocytes # (Manual) 2.38 H (0.30-0.80) 10^3/uL Eosinophils # (Manual) 0.98 H (0.00-0.70) 10^3/uL Basophils # (Manual) 0.00 (0.00-0.10) 10^3/uL Toxic Granulation 2+ Sodium 141 (136-145) mmol/L Potassium 3.3 L (3.5-5.1) mmol/L Chloride 102 (98-107) mmol/L Carbon Dioxide 27.1 (21.0-32.0) mmol/L Anion Gap 15.2 BUN 15.0 (7.0-18.0) mg/dL Creatinine 1.24 (0.70-1.30) mg/dL Est GFR ( Amer) >60 (>=60 mL/min/1.73m^2) Est GFR (Non-Af Amer) 58 L (>=60 mL/min/1.73m^2) BUN/Creatinine Ratio 12.1 Glucose 141 H (74-106) mg/dL Calcium 9.3 (8.5-10.1) mg/dL Total Bilirubin 0.3 (0.2-1.0) mg/dL AST 24 (15-37) U/L ALT 31 (16-63) U/L Alkaline Phosphatase 109 (46-116) U/L Troponin I High Sens 4.7 6.5 (4.0-76.1) pg/mL Total Protein 7.9 (6.4-8.2) g/dL Albumin 3.9 (3.4-5.0) g/dL Globulin 4.0 g/dL Albumin/Globulin Ratio 1.[address] scan - head: Attestation: I have reviewed the pertinent imaging results. My impression: The chest x-ray the radiologist interpreted as a left basilar opacity which may represent pneumonia in the correct clinical setting. I went in and reinterviewed the patient. He is not tachypneic, tachycardic, hypoxic, coughing, or short of breath. I do not think the patient has pneumonia at this time and will not pursue treatment. Radiologist's impression: CT Head Impression: No acute intercranial process Chest x-ray Impression: Left basilar opacity which may represent pneumonia in the correct clinical setting ECG Data Attestation: I personally reviewed and interpreted this ECG as follows: Prior ECG tracings: not available for review Interpretation: Twelve-lead EKG reveals a sinus rhythm with a ventricular rate of 71 bpm. The DE interval and QRS duration within normal limits. QTc is not prolonged. [place] is normal. There is no evidence of ST segment elevation or depression suggestive of infarction or ischemia. Summary: Normal EKG. Discharge Plan Discharge Chief Complaint: Dizziness Clinical Impression: Vertigo Patient Disposition: Home, Self-Care Time of Disposition Decision: 00:56 Condition: Good Mode of Transportation: Private Vehicle Prescriptions / Home Meds: New ondansetron 4 mg tablet,disintegrating 4 mg PO Q6H PRN (Reason: nausea and vomiting) Qty: 14 0RF diazepam [Valium] 5 mg tablet 5 mg PO Q8H PRN (Reason: vertigo) Qty: 14 0RF Print Language: Bulgarian Instructions: Vertigo (ED) Additional Instructions: Thank you for providing me the opportunity to care for you and trusting me. At this time, the CT scan of your brain looks good and you are not exhibiting any signs or symptoms of a stroke. You responded to the medication treatment modalities for vertigo. This may come and go over the next several weeks. You may want to take your medications just in case for the next several days so you do not start to get into stress again. Your laboratories look reassuring as well. Referrals: RAYMOND ROONEY [Primary Care Provider] - 1 week Discharge Date/Time: 08/19/24 01:12
[2024-08-19] VITALS: BP 135/71; PULSE 45; O2SAT 94
[2024-08-19 00:10] VITALS: PULSE 47; O2SAT 95
[2024-08-19 00:20] VITALS: PULSE 48; O2SAT 95
[2024-08-19 00:27] LABS: Troponin I High Sensitivity 6.5 pg/mL (4.0-76.1)
[2024-08-19 00:30] VITALS: BP 143/75; PULSE 46; O2SAT 94
== END 2024-08-19 01:12 | disposition home or self-care (01) ==
PROVIDERS: Emergency Provider Emergency Medicine; PCP Internal Medicine
DX: R42 Dizziness and giddiness (principal); R11.2 Nausea with vomiting, unspecified
CPT/HCPCS: 36415; 70450; 71045; 71046; 80053; 84484; 85007; 85027; 93005; 96361; 96374; 96375; 96376; 99285; J2405; J3360